=== PATIENT | female | born 1995 | race Caucasian/White ===

== ENCOUNTER 2016-04-25 00:36 | Emergency (ER) | payer BC, OTHER ==
[~2016-04-25] VITALS: Ht 160 cm; Wt 56.7 kg
[~2016-04-25 00:36] MED LIST: BSP15 PO; OXYC-57 PO
[2016-04-25 00:37] VITALS: Ht 160 cm; Wt 56.7 kg
[2016-04-25 01:00] VITALS: O2SAT 98
[2016-04-25] MEDS ORDERED: VENL150T33 PO (01:07)
[2016-04-25] MEDS ORDERED: ALBU18002 INH (01:08)
[2016-04-25] MEDS ORDERED: OXYC-57 PO (01:09)
[2016-04-25 01:13] LABS: BASO % 0.5 %; BASO ABS # 0.03 K/uL (0-0.2); COMPLETE YES; EOS % 2.4 %; HEMATOCRIT 36.9 % (37-47); IG% 0.2 %; LYMPH % 47.8 %; LYMPH ABS # 2.64 K/uL (1.2-3.4); MEAN CELL VOLUME 85.8 fL (80-100); MEAN CORPUSCULAR HEMOGLOBIN 29.8 pg (25-34); MEAN CORPUSCULAR HGB CONC 34.7 g/dl (32-36); MEAN PLATELET VOLUME 9.8 fL (7.4-10.4); MONO % 12.5 %; NEUT % 36.6 %; PLATELET COUNT 178 K/uL (130-400); WHITE BLOOD COUNT 5.52 K/uL (4.8-10.8)
[2016-04-25 01:31] LABS: ALT/SGPT 29 U/L (12-78); AST/SGOT 17 U/L (15-37); BLOOD UREA NITROGEN 4 mg/dl (7-18); BUN/CREATININE RATIO 5.3 (10-20); CARBON DIOXIDE 29 mmol/L (21-32); CHLORIDE 105 mmol/L (98-107); CREATININE 0.72 mg/dl (0.60-1.20); GLUCOSE 74 mg/dl (70-99); POTASSIUM 3.5 mmol/L (3.5-5.1); SODIUM 144 mmol/L (136-145)
[2016-04-25 01:34] LABS: ALKALINE PHOSPHATASE 56 U/L (45-117)
[2016-04-25 01:38] LABS: PREG INTERNAL NEGATIVE QC NEG CLEAR BACKGROUND; PREG INTERNAL POSITIVE QC POS CONTROL LINE
[2016-04-25] MEDS ORDERED: ACETAMINOPHEN 500 MG TAB PO STA (01:55)
[2016-04-25] MEDS ORDERED: BENZONATATE 100MG CAP PO ONE (02:00)
[2016-04-25] MEDS ORDERED: BENZ100C18 PO (02:05)
[2016-04-25 02:27] VITALS: BP 97/64; PULSE 78; TEMP 36.4; O2SAT 98
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
--- NOTE | 2016-04-25 07:07 | DIAGNOSTIC IMAGING REPORT ---
CHEST ONE VIEW PORTABLE CLINICAL HISTORY: Chest pain. Cough. COMPARISON STUDY: Chest radiograph October 21, 2015 per FINDINGS: Lung volumes are mildly diminished. There are cholecystectomy clips. There is no pneumothorax or pleural effusion. Cardiac size is normal. Mediastinal contours are normal. There is no evidence of pulmonary edema. IMPRESSION: No acute cardiopulmonary findings. Electronically signed by: Vincenzo Durant M.D. 04/25/2016 7:05 AM Dictated Date/Time: 04/25/2016 7:05 AM
[2016-08-16] MEDS ORDERED: PRED10TA PO (01:30)
== END 2016-04-25 02:31 | disposition home or self-care (01) ==
LOC: C.EDB 00:37
DX: R07.2 Precordial pain (principal)

== ENCOUNTER 2016-08-22 00:09 | Emergency (ER) | payer BC ==
[~2016-08-22] VITALS: Ht 160 cm; Wt 55.7 kg
[~2016-08-22 00:09] MED LIST changes: +ALBU18002 INH; +PRED10TA PO; +VENL150T33 PO
[2016-08-22 00:15] VITALS: Ht 160 cm; Wt 55.7 kg
[2016-08-22] MEDS ORDERED: SODIUM CHLORIDE 0.9% 1000ML 1,000 ML IV ONE (00:30)
[2016-08-22 00:45] LABS: HEMATOCRIT 38.2 % (37-47); MEAN CELL VOLUME 85.3 fL (80-100); MEAN CORPUSCULAR HEMOGLOBIN 29.9 pg (25-34); MEAN CORPUSCULAR HGB CONC 35.1 g/dl (32-36); PLATELET COUNT 249 K/uL (130-400); RED BLOOD COUNT 4.48 M/uL (4.2-5.4); WHITE BLOOD COUNT 8.82 K/uL (4.8-10.8)
[2016-08-22 00:55] LABS: URINE APPEARANCE CLEAR (CLEAR); URINE BILIRUBIN NEG (NEG); URINE COLOR YELLOW; URINE NITRITE NEG (NEG); URINE SPECIFIC GRAVITY 1.012 (1.000-1.030); UROBILINOGEN NEG (NEG); ZZUR CULT IF INDIC CLEAN CATCH NO
[2016-08-22 01:15] LABS: BASO % 0.5 %; BASO ABS # 0.04 K/uL (0-0.2); COMPLETE YES; EOS % 0.7 %; IG% 0.2 %; LYMPH % 58.5 %; LYMPH ABS # 5.16 K/uL (1.2-3.4); MONO % 5.4 %; NEUT % 34.7 %
[2016-08-22 01:25] LABS: BUN/CREATININE RATIO 13.4 (10-20); CALCIUM 8.7 mg/dl (8.5-10.1); CREATININE 0.78 mg/dl (0.60-1.20); POTASSIUM 3.5 mmol/L (3.5-5.1)
[2016-08-22 01:28] LABS: ALB/GLOB RATIO 0.9 (0.9-2)
[2016-08-22] MEDS ORDERED: ONDA-63 PO (01:30)
[2016-08-22] MEDS ORDERED: RIZA1TAB10 PO (01:30)
[2016-08-22] MEDS ORDERED: NORE1TAB3 PO (01:30)
[2016-08-22 01:36] LABS: MANUAL MICROSCOPIC REQUIRED? NO; REVIEW REQ? NO
[2016-08-22 01:52] VITALS: BP 115/67; PULSE 56; TEMP 36.7; O2SAT 99
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
== END 2016-08-22 01:52 | disposition home or self-care (01) ==
LOC: C.EDB 00:10
DX: R10.11 Right upper quadrant pain (principal); F41.9 Anxiety disorder, unspecified; F32.9 Major depressive disorder, single episode, unspecified; K21.9 Gastro-esophageal reflux disease without esophagitis; B00.9 Herpesviral infection, unspecified; Z79.3 Long term (current) use of hormonal contraceptives; Z83.3 Family history of diabetes mellitus; Z82.49 Family history of ischemic heart disease and other diseases of the circulatory system

== ENCOUNTER 2017-05-28 14:57 | Outpatient (CLI) | payer OTHER ==
--- NOTE | 2017-05-28 16:04 | Progress Note ---
Progress Note Date of Service May 28, 2017. Progress Note 22 F P0000 at 15.6 weeks with pelvic pain and discomfort since yesterday. No recent intercouse or trauma. No active vaginal bleeding. Eating OK and voiding without pain or frequency. Urine dipped negative and vitals. Exam shows no guarding or rebound, soft and non-tender. no edema. UA dipped negative. Positive FHT. Will discharge home and follow up next week in office.
== END 2017-05-28 16:10 | disposition home or self-care (01) ==
LOC: C.OPB 14:57 → C.LD 14:58 → C.OPB 16:10
PROVIDERS: ATTEND Obstetrics & Gynecology
DX: O26.891 Other specified pregnancy related conditions, first trimester (principal); R10.2 Pelvic and perineal pain; Z3A.15 15 weeks gestation of pregnancy

== ENCOUNTER 2017-07-20 22:47 | Emergency (ER) | payer OTHER ==
[~2017-07-20] VITALS: Ht 160 cm; Wt 55.0 kg
[2017-07-20 22:49] VITALS: TEMP 36.6; Ht 160 cm; Wt 55.0 kg
[2017-07-20] MEDS ORDERED: SODIUM CHLORIDE 0.9% 1000ML 1,000 ML IV STA (23:19)
[2017-07-20] MEDS ORDERED: ALUMINUM/MAGNESIUM SUSP 30 ML UDC PO STA (23:22)
[2017-07-20 23:29] LABS: BASO % 0.2 %; BASO ABS # 0.02 K/uL (0-0.2); EOS % 0.8 %; EOS ABS # 0.08 K/uL (0-0.5); HEMATOCRIT 36.1 % (37-47); HEMOGLOBIN 12.5 g/dL (12.0-16.0); IG# 0.02 K/uL (0.00-0.02); LYMPH % 30.6 %; LYMPH ABS # 3.01 K/uL (1.2-3.4); MEAN CELL VOLUME 86.8 fL (80-100); MEAN CORPUSCULAR HGB CONC 34.6 g/dl (32-36); MEAN PLATELET VOLUME 10.1 fL (7.4-10.4); MONO % 6.4 %; MONO ABS # 0.63 K/uL (0.11-0.59); NEUT % 61.8 %; NEUT ABS # 6.07 K/uL (1.4-6.5); PLATELET COUNT 215 K/uL (130-400); RED CELL DISTRIBUTION WIDTH CV 12.6 % (11.5-14.5); WHITE BLOOD COUNT 9.83 K/uL (4.8-10.8)
[2017-07-20] MEDS ORDERED: PRENTAB26 PO (23:34)
[2017-07-20] MEDS ORDERED: JNL12021 PO (23:36)
[2017-07-20 23:48] LABS: ALBUMIN 3.2 gm/dl (3.4-5.0); ALT/SGPT 20 U/L (12-78); AST/SGOT 13 U/L (15-37); BLOOD UREA NITROGEN 6 mg/dl (7-18); CALCIUM 8.6 mg/dl (8.5-10.1); CARBON DIOXIDE 27 mmol/L (21-32); CREATININE 0.59 mg/dl (0.60-1.20); GLUCOSE 83 mg/dl (70-99); LIPASE 190 U/L (73-393); POTASSIUM 3.4 mmol/L (3.5-5.1); SODIUM 137 mmol/L (136-145)
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
[2017-07-20 23:53] LABS: ALKALINE PHOSPHATASE 51 U/L (45-117); TOTAL PROTEIN 7.2 gm/dl (6.4-8.2)
[2017-07-21] MEDS ORDERED: ONDANSETRON INJ 2 MG/ML 2 ML VIAL IV STA (01:04)
[2017-07-21] MEDS ORDERED: ACETAMINOPHEN 325 MG TAB PO STA (01:04)
[2017-07-21] MEDS ORDERED: FAMOTIDINE 20MG/5ML IV PUSH IV STA (01:05)
[2017-07-21] MEDS ORDERED: DOXY30TA PO (02:25)
[2017-07-21 02:53] VITALS: BP 102/52; PULSE 72; O2SAT 100
--- NOTE | 2017-07-21 07:13 | DIAGNOSTIC IMAGING REPORT ---
ABDOMINAL ULTRASOUND, RIGHT UPPER QUADRANT HISTORY: hx liver disease, right upper quadrant abdominal pain. COMPARISON: None. FINDINGS: Pancreas: The pancreatic tail is obscured by overlying bowel gas. The remaining portions of the pancreas are within normal limits. Liver: Unremarkable. Gallbladder: The gallbladder is surgically absent. CBD: 2 mm. Right kidney: Mild fullness within the right renal collecting system. This is similar to the prior study. IMPRESSION: 1. Cholecystectomy. 2. Mild fullness within the right renal collecting system, unchanged. Electronically signed by: Bismark Brown M.D. 07/21/2017 7:11 AM Dictated Date/Time: 07/21/2017 7:10 AM
== END 2017-07-21 03:02 | disposition home or self-care (01) ==
LOC: C.EDB 22:48
DX: O26.892 Other specified pregnancy related conditions, second trimester (principal); R10.13 Epigastric pain; R07.9 Chest pain, unspecified; Z3A.24 24 weeks gestation of pregnancy; O99.612 Diseases of the digestive system complicating pregnancy, second trimester; K21.9 Gastro-esophageal reflux disease without esophagitis; Z79.899 Other long term (current) drug therapy; Z88.5 Allergy status to narcotic agent; Z91.041 Radiographic dye allergy status; Z88.2 Allergy status to sulfonamides; Z88.0 Allergy status to penicillin; Z88.8 Allergy status to other drugs, medicaments and biological substances

== ENCOUNTER 2017-07-24 16:56 | Emergency (ER) | payer OTHER ==
[~2017-07-24] VITALS: Ht 160 cm; Wt 55.1 kg
[~2017-07-24 16:56] MED LIST changes: -ALBU18002 INH; -BSP15 PO; +DOXY30TA PO; +JNL12021 PO; -OXYC-57 PO; -PRED10TA PO; +PRENTAB26 PO; -VENL150T33 PO
[2017-07-24 17:03] VITALS: TEMP 36.8; Ht 160 cm; Wt 55.1 kg
[2017-07-24] MEDS ORDERED: SODIUM CHLORIDE 0.9% 1000ML 1,000 ML IV STA (17:17)
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
[2017-07-24 18:19] LABS: BASO % 0.2 %; BASO ABS # 0.01 K/uL (0-0.2); EOS % 0.9 %; EOS ABS # 0.05 K/uL (0-0.5); HEMATOCRIT 33.9 % (37-47); IG# 0.01 K/uL (0.00-0.02); LYMPH % 33.1 %; MEAN CELL VOLUME 85.8 fL (80-100); MEAN CORPUSCULAR HEMOGLOBIN 30.4 pg (25-34); MEAN CORPUSCULAR HGB CONC 35.4 g/dl (32-36); NEUT % 54.6 %; NEUT ABS # 2.97 K/uL (1.4-6.5); PLATELET COUNT 181 K/uL (130-400); RED CELL DISTRIBUTION WIDTH CV 12.5 % (11.5-14.5); RED CELL DISTRIBUTION WIDTH SD 39.4 fL (36.4-46.3); WHITE BLOOD COUNT 5.44 K/uL (4.8-10.8)
[2017-07-24] MEDS ORDERED: CHOLESTYRAMINE LIGHT 4 GM PKT PO STA (18:20)
[2017-07-24 18:46] LABS: ALBUMIN 2.7 gm/dl (3.4-5.0); ALT/SGPT 35 U/L (12-78); AST/SGOT 29 U/L (15-37); BLOOD UREA NITROGEN 5 mg/dl (7-18); CALCIUM 8.2 mg/dl (8.5-10.1); CARBON DIOXIDE 24 mmol/L (21-32); GLUCOSE 84 mg/dl (70-99); LIPASE 101 U/L (73-393); POTASSIUM 3.3 mmol/L (3.5-5.1); SODIUM 136 mmol/L (136-145)
[2017-07-24 18:49] LABS: ALKALINE PHOSPHATASE 55 U/L (45-117); TOTAL PROTEIN 6.7 gm/dl (6.4-8.2)
[2017-07-24] MEDS ORDERED: POTASSIUM CHLORIDE 20 MEQ TABCR PO STA (18:57)
[2017-07-24] MEDS ORDERED: POTASSIUM CHLORIDE 10 MEQ TABCR ONE (19:03)
[2017-07-24 20:33] VITALS: BP 110/69; PULSE 90; O2SAT 100
== END 2017-07-24 20:35 | disposition home or self-care (01) ==
LOC: C.EDB 16:57
DX: O99.619 Diseases of the digestive system complicating pregnancy, unspecified trimester (principal); Z3A.00 Weeks of gestation of pregnancy not specified; R19.7 Diarrhea, unspecified; E87.6 Hypokalemia; K21.9 Gastro-esophageal reflux disease without esophagitis; Z88.0 Allergy status to penicillin; Z88.1 Allergy status to other antibiotic agents; Z88.6 Allergy status to analgesic agent; Z88.8 Allergy status to other drugs, medicaments and biological substances; Z91.041 Radiographic dye allergy status

== ENCOUNTER 2017-11-03 17:18 | Outpatient (CLI) | payer OTHER ==
[~2017-11-03] VITALS: Ht 160 cm; Wt 61.7 kg
[~2017-11-03 17:18] MED LIST changes: -DOXY30TA PO; -JNL12021 PO
[2017-11-03] MEDS ORDERED: LACTATED RINGER'S 1000ML 1,000 ML IV SCH (18:21)
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
[2017-11-03 19:01] LABS: BASO % 0.3 %; BASO ABS # 0.02 K/uL (0-0.2); EOS % 0.8 %; EOS ABS # 0.05 K/uL (0-0.5); HEMATOCRIT 29.4 % (37-47); HEMOGLOBIN 9.6 g/dL (12.0-16.0); IG# 0.03 K/uL (0.00-0.02); LYMPH % 30.9 %; LYMPH ABS # 1.96 K/uL (1.2-3.4); MEAN CELL VOLUME 83.3 fL (80-100); MEAN CORPUSCULAR HEMOGLOBIN 27.2 pg (25-34); MEAN PLATELET VOLUME 10.5 fL (7.4-10.4); MONO % 7.1 %; MONO ABS # 0.45 K/uL (0.11-0.59); NEUT % 60.4 %; NEUT ABS # 3.83 K/uL (1.4-6.5); PLATELET COUNT 171 K/uL (130-400); RED CELL DISTRIBUTION WIDTH CV 12.4 % (11.5-14.5); RED CELL DISTRIBUTION WIDTH SD 37.8 fL (36.4-46.3); WHITE BLOOD COUNT 6.34 K/uL (4.8-10.8)
[2017-11-03 19:25] LABS: ALBUMIN 2.2 gm/dl (3.4-5.0); ALKALINE PHOSPHATASE 157 U/L (45-117); ALT/SGPT 12 U/L (12-78); AST/SGOT 14 U/L (15-37); TOTAL PROTEIN 6.3 gm/dl (6.4-8.2); URIC ACID 4.1 mg/dl (2.6-7.2)
[2017-11-03 19:48] LABS: MEAN CORPUSCULAR HGB CONC 32.7 g/dl (32-36)
[2017-11-03 19:57] VITALS: Ht 160 cm; Wt 61.7 kg
== END 2017-11-03 21:09 | disposition home or self-care (01) ==
LOC: C.LD 17:18 → C.OPB 17:18
PROVIDERS: ATTEND Obstetrics & Gynecology
DX: O99.89 Other specified diseases and conditions complicating pregnancy, childbirth and the puerperium (principal); R51 Headache; R11.0 Nausea; Z3A.00 Weeks of gestation of pregnancy not specified; Z88.0 Allergy status to penicillin; Z88.2 Allergy status to sulfonamides; Z88.5 Allergy status to narcotic agent; Z91.041 Radiographic dye allergy status

== ENCOUNTER 2017-11-09 15:09 | Inpatient (IN) | payer OTHER ==
[~2017-11-09] VITALS: Ht 160 cm; Wt 62.0 kg
[2017-11-09] MEDS ORDERED: LACTATED RINGER'S 1000ML 500 ML IV PRN ×2 (15:35→20:36)
[2017-11-09] MEDS ORDERED: LACTATED RINGER'S 1000ML 1,000 ML IV SCH (15:36)
[2017-11-09] MEDS ORDERED: LACTATED RINGER'S 1000ML 1,000 ML IV PRN (15:36)
[2017-11-09] MEDS ORDERED: OXYTOCIN 30 UNITS/500ML NSS IV PRN (15:45)
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
[2017-11-09 16:10] LABS: HEMATOCRIT 28.6 % (37-47); HEMOGLOBIN 9.5 g/dL (12.0-16.0); MEAN CELL VOLUME 82.7 fL (80-100); MEAN CORPUSCULAR HEMOGLOBIN 27.5 pg (25-34); MEAN CORPUSCULAR HGB CONC 33.2 g/dl (32-36); MEAN PLATELET VOLUME 10.4 fL (7.4-10.4); PLATELET COUNT 196 K/uL (130-400); RED CELL DISTRIBUTION WIDTH CV 12.5 % (11.5-14.5); RED CELL DISTRIBUTION WIDTH SD 37.7 fL (36.4-46.3); WHITE BLOOD COUNT 6.52 K/uL (4.8-10.8)
[2017-11-09 16:38] LABS: ALBUMIN 2.5 gm/dl (3.4-5.0); ALKALINE PHOSPHATASE 167 U/L (45-117); ALT/SGPT 13 U/L (12-78); AST/SGOT 18 U/L (15-37); BLOOD UREA NITROGEN 5 mg/dl (7-18); CALCIUM 8.6 mg/dl (8.5-10.1); CARBON DIOXIDE 23 mmol/L (21-32); CREATININE 0.68 mg/dl (0.60-1.20); GLUCOSE 97 mg/dl (70-99); POTASSIUM 3.5 mmol/L (3.5-5.1); SODIUM 137 mmol/L (136-145); TOTAL PROTEIN 6.5 gm/dl (6.4-8.2)
[2017-11-09 17:20] VITALS: Ht 160 cm; Wt 62.0 kg
[2017-11-09] MEDS ORDERED: BUPIVACAINE 0.25% 30 ML VIAL ONE (18:53)
[2017-11-09] MEDS ORDERED: EpHEDrine SULFATE INJ 50 MG/ML AMP ONE (18:54)
[2017-11-09] MEDS ORDERED: FENTANYL CITRATE INJ 50 MCG/1 ML 2 ML VIAL ONE (18:54)
[2017-11-09] MEDS ORDERED: FENTANYL 2MCG/ML ROPIV 1.25MG/ML 100ML BAG ONE (18:55)
[2017-11-09] MEDS ORDERED: DiphenhydrAMINE HCL 50 MG/ML VIAL ONE (19:29)
[2017-11-09] MEDS ORDERED: DiphenhydrAMINE HCL 50 MG/ML VIAL IV STA (20:11)
[2017-11-09] MEDS ORDERED: NALOXONE HCL INJ 1 MG in SODIUM CHLORIDE 0.9% 1000ML 1,000 ML IV PRN (20:36)
[2017-11-09] MEDS ORDERED: EpHEDrine SULFATE INJ 50 MG/ML AMP IV PRN (20:45)
[2017-11-09] MEDS ORDERED: FENTANYL 2MCG/ML ROPIV 1.25MG/ML 100ML BAG EPI PRN (20:45)
[2017-11-09] MEDS ORDERED: NALOXONE HCL INJ 0.4 MG/1 ML VIAL/CARP IV PRN (20:45)
[2017-11-09] MEDS ORDERED: ONDANSETRON INJ 2 MG/ML 2 ML VIAL IV PRN (20:45)
[2017-11-09] MEDS ORDERED: DiphenhydrAMINE HCL 50 MG/ML VIAL IV PRN (20:45)
[2017-11-10] MEDS ORDERED: LACTATED RINGER'S 1000ML 1,000 ML IV SCH (00:35)
[2017-11-10] MEDS ORDERED: SUPERCREAM 0.870 % 15GM JAR EXT PRN (00:45)
[2017-11-10] MEDS ORDERED: DIPHTHERIA/TETANUS/PERTUSSIS 0.5 ML SYR/VIAL IM. ONE (00:45)
[2017-11-10] MEDS ORDERED: OXYTOCIN 30 UNITS/500ML NSS IV PRN (00:45)
[2017-11-10] MEDS ORDERED: LANOLIN OINT EXT PRN (00:45)
[2017-11-10] MEDS ORDERED: HYDROCORTISONE ACETATE 25 MG SUPP PR PRN (00:45)
[2017-11-10] MEDS ORDERED: OXYCODONE/ACETAMINOPHEN 5-325 TAB PO PRN (00:45)
[2017-11-10] MEDS ORDERED: BENZOCAINE 20% AER SPR 82.5 GM CAN EXT PRN (00:45)
[2017-11-10] MEDS ORDERED: MEASLES, MUMPS & RUBELLA VIRUS VIAL SQ. ONE (00:45)
--- NOTE | 2017-11-10 01:13 | DELIVERY SUMMARY ---
DATE OF OPERATION: 11/10/2017 DATE OF DELIVERY: 11/10/2017 TIME OF DELIVERY OF BABY: 0008 a.m. TIME OF DELIVERY OF PLACENTA: 0024 a.m. DETAILS OF DELIVERY: Patient was found to be fully dilated and desired to push. She pushed for about 20 minutes and then right mediolateral episiotomy was opened as planned due to her medical history and then the head was delivered without difficulty. There was nuchal cord around the neck x2. They were reduced. Shoulders were delivered with minimal traction. Baby was handed off to the mother where mouth and nose were suctioned. Cord was clamped x2 and cut at 1 minute delay and cord blood was obtained. The vagina and perineum were checked for lacerations. There was only small right mediolateral episiotomy, which was opened earlier. No other lacerations were found and this was repaired with 2-0 Vicryl in a running fashion bringing the vaginal mucosa together, bulbocavernous muscle together and skin in a subcuticular fashion. Excellent hemostasis was achieved. The placenta was found to be in the vagina, delivered spontaneously as intact and complete. Uterus was explored and found to be empty. Lower segment was cleared off all clots and debris. Fundus was firm. EBL was 200 mL. Mom and baby tolerated the procedure well. Sponge, lap, and needle counts were correct x2. Baby was a viable female . Apgars 8/9, weight is 3458 gr. No complications happened and I was present during whole procedure. I attest to the content of the Intraoperative Record and any orders documented therein. Any exceptions are noted below. MTDD
--- NOTE | 2017-11-10 01:41 | Anesthesia Procedure Note ---
Anesthesia Epidural Removal Nt Date & Time Nov 10, 2017 at 01:41 Vital Signs Pain Intensity: 2.0 Notes Mental Status: alert / awake / arousable, participated in evaluation Nausea / Vomiting: adequately controlled Pain: adequately controlled Airway Patency, RR, SpO2: stable & adequate BP & HR: stable & adequate Hydration State: stable & adequate Neuraxial Anesthesia: was administered, sensory block is resolving Anesthetic Complications: no major complications apparent, pt satisfied with anesthetic care Epidural: removed without complications, with tip intact
[2017-11-10] MEDS: IBUPROFEN 600 MG TAB PO PRN ×5 (03:10→23:38)
[2017-11-10 03:35] VITALS: BP 139/91; PULSE 69; TEMP 36.7; O2SAT 98
[2017-11-10] MEDS: PRENATAL VITAMIN TAB PO SCH (07:33)
[2017-11-10] MEDS: FERROUS SULFATE 325 MG TAB PO SCH (07:33)
[2017-11-10] MEDS: DOCUSATE SODIUM 100 MG CAP PO SCH ×2 (07:33→19:53)
[2017-11-10 08:00] VITALS: BP 138/87; PULSE 57; TEMP 36.9; O2SAT 98
[2017-11-10] MEDS: ACETAMINOPHEN 325 MG TAB PO PRN ×2 (09:47→19:14)
[2017-11-10 11:10] VITALS: BP 121/83; PULSE 65; TEMP 36.6
[2017-11-10 15:15] VITALS: BP 124/85; PULSE 64; TEMP 36.4; O2SAT 98
[2017-11-10 19:00] VITALS: BP_SYST 139; BP_SYST 87; BP_DIAS 50; BP_DIAS 94; PULSE 67; PULSE 68; TEMP 36.6; TEMP 36.9; O2SAT 97
[2017-11-10 23:30] VITALS: BP 133/87; PULSE 56; TEMP 36.4; O2SAT 100
[2017-11-11 07:09] LABS: HEMATOCRIT 26.6 % (37-47); HEMOGLOBIN 8.7 g/dL (12.0-16.0)
[2017-11-11 07:50] VITALS: BP 135/88; PULSE 52; TEMP 36.7; O2SAT 99
--- NOTE | 2017-11-11 08:33 | OB/GYN Progress Note ---
BUSINESS ACCOUNT SPECIALIST Progress Note Date of Service: Nov 11, 2017. Patient is seen and examined. She feels well, no complaints. Likes to be discharged if baby will be Ambulating without dizziness Voiding without difficulty Tolerating regular diet with out N&V Bleeding is minimal No fever/ chills/ CP/ SOB/ N&V/ Leg pain Bottle feeding without problems Discussed contraception, likes to decide at 6 weeks pp visit Date Time Temp Pulse Resp B/P (MAP) Pulse Ox O2 Delivery O2 Flow Rate FiO2 11/10/17 23:30 36.4 56 18 133/87 (102) 100 Room Air 11/10/17 23:30 Room Air 11/10/17 19:00 36.9 68 20 139/94 (109) 97 Room Air 11/10/17 15:15 36.4 64 20 124/85 (98) 98 Room Air 11/10/17 15:15 98 Room Air 11/10/17 11:10 36.6 65 16 121/83 (96) Room Air Last 24 Hours Test 11/11/17 06:40 Hemoglobin 8.7 g/dL Hematocrit 26.6 % PE: General: Alert, orientedx3, NAD Abd: soft, NT, fundus firm, below Umbilicus Perineum intact, Lochia rubra minimal Ext; NT, no edema AP: 22 yo s/p , ppd# 1, on 11/10 at 0008 am VSS Afebrile doing well Continue routine care All questions were answered Discussed when to call D/C home with baby
[2017-11-11] MEDS ORDERED: MTR600X PO (08:34)
[2017-11-11] MEDS ORDERED: FRRS300 PO (08:34)
--- NOTE | 2017-11-11 08:35 | Discharge Instructions ---
Discharge Instructions Date of Service Nov 11, 2017. Admission Reason for Admission: Prolonged Latent Phase Of Labor Discharge Discharge Diagnosis / Problem: Discharge Goals Goal(s): Routine recovery after delivery Medications Continue Dispensed Medications: dermaplast, lansinoh Activity Recommendations Activity Limitations: as noted below ACTIVITY RECOMMENDATIONS: * Gradual return to full activity over the next 2-3 weeks. * No lifting - nothing heavier than baby over the next 2-3 weeks. * Do not engage in vigorous exercise, sexual activity or sports until cleared by your physician. * Do not drive or operate any motorized equipment until cleared by your physician. * You may shower/bathe daily. BREAST CARE: If you are not breast feeding: * Wear a supportive bra 24 hours a day for one to two weeks. * Avoid stimulating your breasts and nipples as much as possible during the first few weeks after delivery. * When taking a shower, have the warm water hit your back, not breasts. * When your breasts feel full, apply ice packs. Usually three to four times a day helps ease the discomfort. * Take a mild pain medication (Tylenol/Motrin) when you are uncomfortable. If breast feeding: * Use breast milk to lubricate nipples. Lansinoh cream may be used for sore nipples. You do not need to remove cream prior to breast feeding. If using a different brand of cream, check the label for directions regarding removal of cream prior to nursing. * Wear a supportive bra. * If having problems with breasts or breast feeding, call a medical cost consultant or your health care provider. EPISIOTOMY CARE: After delivery, if you have an episiotomy (stitches), the following steps will ease discomfort and aid healing. * For the first 24 hours after delivery, place ice packs next to your episiotomy to help reduce swelling. * After the first 24 hour-period, sitz baths, either portable or in the tub, are suggested. A shower with a shower arm sprayed over the episiotomy may be comforting. * Liat care should be done after each voiding and bowel movement. Squirt warm water from a plastic bottle over the perineum (region of the body between the anus and urinary opening) and pat dry. * Use Dermoplast to ease discomfort. Shake container. Oran directly over the episiotomy. * Place a Tucks on a clean sanitary pad next to your episiotomy. OVER THE COUNTER MEDICATION: * For discomfort or pain, you may use Acetaminophen (Tylenol), Ibuprofen (Advil ), or Naproxen (Aleve) following the package directions. * For constipation you may use Colace following the package directions. SPECIAL CARE INSTRUCTIONS: When you are discharged from the hospital, it is important for you to follow the instructions listed below: * During the first week at home, you should be able to care for yourself and your baby. In addition, the usual light household activities are encouraged. * Limit your activities to the way you feel. Do not try to clean the house or move furniture. Be sensible. * If you actively engage in sports and have done so up until the time of your delivery, you may resume these activities as soon as you feel able. This may take up to one month or even longer. Use good judgment. * Continue to take your vitamins for at least six weeks after the of your baby. * Your diet need not be limited unless you were on a special diet before your delivery. Breast-feeding mothers need around 2500 calories per day and at least 64-80 ounces of fluid per day (8 to 10 glasses). * You should eat foods from the four major food groups. Crash diets or fad diets are to be avoided. Eating lean meats, fresh fruits and vegetables, low-fat dairy products, high fiber foods and a regular exercise program, will help you get back to your pre- weight without putting your health at risk. * Constipation is sometimes a problem after delivery. Take a mild laxative as needed. If breast feeding, Milk of Magnesia is acceptable to use. You may use a suppository or Fleets enema if no episiotomy. * A daily shower or tub bath is suggested. Be sure to thoroughly and gently dry the perineum. * A bloody vaginal discharge will usually continue until around four weeks post . A small amount of bleeding may continue for as long as six weeks. Vaginal discharge changes from the bright red bleeding after delivery to pink then brownish and finally yellowish-pink before becoming white and disappearing. * Bleeding may increase with activity. Your first period may come in 4-8 weeks. If you are breast feeding, your period may be delayed even longer. * Bowden (sex) can begin whenever both you and your partner feel comfortable and do not have any form of genital infection. It is recommended that you wait until after your return appointment and discuss with your physician. If you have questions, please talk to your health care practitioner. A condom should be used to prevent infection and . * Foreplay, gentle intercourse and lubrication is very important the first several times to prevent pain. A water-based lubricant such as K-Y jelly or Astroglide may be used. * Tampons may be used six weeks after delivery. * Douching should be avoided for 6 weeks after delivery. * If you have RH negative blood and your baby is RH positive, you will receive RHOGAM by injection prior to discharge. The nurse will give you a card to keep with you that has the date and place that you received RHOGAM after delivery. * During your care, you had a Rubella screen done to check for the presence of rubella antibodies in your blood. If your test was negative, you will receive a Rubella vaccine prior to discharge. This vaccine may cause a fever, soreness at the injection site and flu-like symptoms. If these symptoms persist, notify your health care practitioner. is not advised for three months after a Rubella vaccine. There is a higher chance of having a baby with defects if conceived within three months of getting the vaccine. * If you were discharged 24 hours from delivery or before 48 hours: Visiting nurses will come to your home 48 hours after discharge to assess you and your baby. The visiting nurse will meet with you while you are in the hospital to arrange a time and get directions to your home. * Verbalizes understanding of car seat law as reviewed with patient nursing. * Car Seat hand-out given and reviewed with patient by nursing. * Shaken baby information reviewed with patient by nursing. Call you doctor if: * Heavy bleeding (saturating several pads an hour) or passing clots the size of your fist. * A fever >101 degrees F (38.3 degrees C) on two occasions four hours apart and/or chills. * Unusual pain in the pelvic or vaginal areas. * "Baby Blues" lasting longer than two weeks. If you have any questions or concerns, call your health care practitioner at . FOLLOW-UP VISIT: * Please call the office at to schedule a 6 week examination. It is important you keep this appointment. * It is important for you to make arrangements for either yearly or twice yearly check-ups thereafter. . Current Hospital Diet Patient's current hospital diet: Regular OB Diet Discharge Diet Recommended Diet: Regular Diet Pending Studies Studies pending at discharge: no Medical Emergencies . Who to Call and When: Medical Emergencies: If at any time you feel your situation is an emergency, please call 911 immediately. . Non-Emergent Contact Non-Emergency issues call your: Gear Shaper Set Up Operator Call Non-Emergent contact if: you have a fever, temperature is above 100.5, your pain is not controlled, your pain is worsening, your pain is unusual for you . . "Provider Documentation" section prepared by Ever Lockwood. .
[2017-11-11] MEDS: FERROUS SULFATE 325 MG TAB PO SCH (08:49)
[2017-11-11] MEDS: PRENATAL VITAMIN TAB PO SCH (08:49)
[2017-11-11] MEDS: DOCUSATE SODIUM 100 MG CAP PO SCH ×2 (08:50→20:01)
[2017-11-11] MEDS: IBUPROFEN 600 MG TAB PO PRN ×2 (10:06→13:54)
[2017-11-11 15:35] VITALS: BP 132/88; PULSE 62; TEMP 36.7; O2SAT 98
[2017-11-11] MEDS: ACETAMINOPHEN 325 MG TAB PO PRN (18:36)
[2017-11-11 19:20] VITALS: BP 139/90; PULSE 67
[2017-11-11] MEDS ORDERED: BISACODYL 5 MG TABEC PO SCH (20:00)
[2017-11-11 23:55] VITALS: BP 130/87; PULSE 56; TEMP 36.7
[2017-11-12] MEDS: IBUPROFEN 600 MG TAB PO PRN ×2 (00:33→08:47)
--- NOTE | 2017-11-12 06:24 | OB/GYN Progress Note ---
FAMILY LIFE EDUCATOR Progress Note Date of Service: Nov 12, 2017. Patient is seen and examined. She feels well, no complaints. Ambulating without dizziness Voiding without difficulty Tolerating regular diet with out N&V Bleeding is minimal No fever/ chills/ CP/ SOB/ N&V/ Leg pain Bottle feeding without problems Vital Signs Past 12 Hours Date Time Temp Pulse Resp B/P (MAP) Pulse Ox O2 Delivery O2 Flow Rate FiO2 11/11/17 23:55 36.7 56 18 130/87 (101) Room Air 11/11/17 23:55 Room Air 11/11/17 19:20 67 139/90 (106) Last 24 Hours Test 11/11/17 06:40 11/12/17 04:44 Hemoglobin 8.7 g/dL Hematocrit 26.6 % PE: General: Alert, orientedx3, NAD Abd: soft, NT, fundus firm, below Umbilicus Perineum intact, Lochia rubra minimal Ext; NT, no edema AP: 22 yo s/p , ppd# 2 VSS Afebrile doing well Continue routine care All questions were answered Discussed when to call, iron, PNV intake D/C home , f/u in office
[2017-11-12] MEDS ORDERED: BISACODYL 10 MG SUPP PR PRN (07:00)
[2017-11-12 07:02] LABS: HEMATOCRIT 27.3 % (37-47); HEMOGLOBIN 8.8 g/dL (12.0-16.0); MEAN CELL VOLUME 82.7 fL (80-100); MEAN CORPUSCULAR HEMOGLOBIN 26.7 pg (25-34); MEAN CORPUSCULAR HGB CONC 32.2 g/dl (32-36); MEAN PLATELET VOLUME 9.9 fL (7.4-10.4); PLATELET COUNT 171 K/uL (130-400); RED CELL DISTRIBUTION WIDTH CV 12.7 % (11.5-14.5); RED CELL DISTRIBUTION WIDTH SD 38.1 fL (36.4-46.3); WHITE BLOOD COUNT 7.88 K/uL (4.8-10.8)
[2017-11-12 08:05] VITALS: BP 121/87; PULSE 53; TEMP 36.8; O2SAT 96
[2017-11-12] MEDS: FERROUS SULFATE 325 MG TAB PO SCH (08:45)
[2017-11-12] MEDS: PRENATAL VITAMIN TAB PO SCH (08:45)
[2017-11-12] MEDS: DOCUSATE SODIUM 100 MG CAP PO SCH (08:46)
[2017-11-12 11:45] VITALS: BP_DIAS 87; PULSE 53; TEMP 36.8
== END 2017-11-12 11:45 | disposition home or self-care (01) | DRG 775 ==
LOC: C.OPB 15:09 → C.LD 15:10 → C.OPB 15:38 → C.OBG 11-10 03:34
PROVIDERS: ADMIT Obstetrics & Gynecology; ATTEND Obstetrics & Gynecology
PROC: 10E0XZZ Delivery of Products of Conception, External Approach (ICD-10-PCS; principal; 2017-11-10)
PROC: 0W8NXZZ Division of Female Perineum, External Approach (ICD-10-PCS; principal; 2017-11-10)
DX: O63.0 Prolonged first stage (of labor) (principal); O69.81X0 Labor and delivery complicated by cord around neck, without compression, not applicable or unspecified; Z3A.39 39 weeks gestation of pregnancy; Z37.0 Single live birth

== ENCOUNTER 2024-08-06 10:32 | Inpatient (IN) ==
[2024-08-06] MEDS ORDERED: LIDOCAINE 1% LOCAL 20 ML VIAL INFIL PRN (11:45)
[2024-08-06] MEDS ORDERED: OXYTOCIN 30 UNITS/NSS 30 UNITS/500 ML BAG IV PRN ×2 (11:45→20:25)
--- NOTE | 2024-08-06 11:48 | Obstetrical Progress Note ---
Date of Service August 06, 2024 Assessment & Plan (1) : Admission and Anticipated Discharge Date Admission Date: August 06, 2024 Subjective Pt is a 29yo at term Hx of syncope that that is worsened in Pt is seen by cardiology and neurology and recommendation is delivery FHR; CAT1 Ctx None Bedside sono; VT VE; 1/thick/post Johnson cath placed without difficulty. 35cc saline Results & Data Vital Signs (Past 12 Hours) Vital Signs Temp Pulse Resp BP 08/06/24 10:40 36.9 C 96 H 20 125/80
[2024-08-06] MEDS: LACTATED RINGER'S 1,000 ML IV PRN (12:07)
[2024-08-06] MEDS: OXYTOCIN 30 UNITS/NSS 30 UNITS/500 ML BAG IV PRN (12:23)
[2024-08-06 12:33] LABS: Hematocrit (blood only) 33.2 % (37.0-47.0); Hemoglobin 11.7 g/dl (12.0-16.0); Mean Corpuscular Hemoglobin 30.6 pg (25.0-34.0); Mean Corpuscular Hgb Conc 35.2 g/dL (32.0-36.0); Mean Corpuscular Volume 86.9 fL (80.0-100.0); Mean Platelet Volume 10.9 fL (9.4-12.4); Platelet Count 142 K/uL (130-400); RDW Coefficient of Variation 12.8 % (11.5-14.5); RDW Standard Deviation 39.8 fL (36.4-46.3); Red Blood Count 3.82 M/uL (4.20-5.40); White Blood Count 6.48 K/ul (4.8-10.8)
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
[2024-08-06] MEDS ORDERED: SODIUM CHLORIDE 0.9% PF INJ 10 ML VIAL EPI PRN (14:49)
[2024-08-06] MEDS ORDERED: ePHEDrine sulfate 50 MG/ML AMP IV PRN (14:49)
[2024-08-06] MEDS ORDERED: LIDOCAINE 2% MPF LOCAL 5 ML VIAL EPI PRN (14:49)
[2024-08-06] MEDS ORDERED: NALOXONE HCL 1 MG in SODIUM CHLORIDE 0.9% 1,000 ML IV PRN (14:49)
[2024-08-06] MEDS ORDERED: ROPIVACAINE 0.5% PF 5 MG/ML 20 ML VIAL EPI PRN (14:49)
[2024-08-06] MEDS ORDERED: diphenhydrAMINE 50 MG/ML VIAL IV PRN (14:49)
[2024-08-06] MEDS ORDERED: BUPIVACAINE 0.25% PF 30 ML VIAL EPI PRN (14:49)
[2024-08-06] MEDS ORDERED: NALOXONE HCL 0.4 MG/1 ML VIAL/CARP IV PRN (14:49)
[2024-08-06] MEDS: fentaNYL citrate PF 100 MCG/2 ML VIAL ONE (15:04)
[2024-08-06] MEDS: ROPIVACAINE PF 0.125% 100 ML BAG EPI PRN (15:38)
[2024-08-06] MEDS: BUPIVACAINE 0.25% PF 30 ML VIAL ONE (15:42)
[2024-08-06] MEDS: SODIUM CHLORIDE 0.9% PF INJ 10 ML VIAL ONE (15:42)
[2024-08-06] MEDS: LIDOCAINE 2%/EPINEPHRINE 1:200,000 20 ML PF ONE (15:42)
--- NOTE | 2024-08-06 16:46 | Obstetrical Progress Note ---
Date of Service August 06, 2024 Assessment & Plan (1) : Plan: Pt doing well Epidural analgesia placed FHR; CAT1 CTx;1-3min VE; 4/50/-2 Pit; 8mui AROM with amnio hook- Mild meconium Anticipate VD Admission and Anticipated Discharge Date Admission Date: August 06, 2024 Results & Data Vital Signs (Past 12 Hours) Vital Signs Temp Pulse Resp BP Pulse Ox 08/06/24 16:36 69 99 08/06/24 16:31 70 98 08/06/24 16:27 81 124/78 08/06/24 16:26 67 99 08/06/24 16:21 69 99 08/06/24 16:16 68 99 08/06/24 16:12 67 123/78 08/06/24 16:11 68 99 08/06/24 16:06 73 99 08/06/24 16:01 77 99 08/06/24 15:57 71 125/77 08/06/24 15:56 75 99 08/06/24 15:51 73 99 08/06/24 15:46 75 98 08/06/24 15:43 36.9 C 18 08/06/24 15:42 81 120/77 08/06/24 15:41 74 98 08/06/24 15:40 78 124/78 08/06/24 15:38 74 129/80 08/06/24 15:36 78 130/75 97 08/06/24 15:34 84 135/81 08/06/24 15:32 82 126/74 08/06/24 15:31 84 98 08/06/24 15:30 86 124/84 08/06/24 15:28 91 H 124/82 08/06/24 15:26 81 132/84 97 08/06/24 15:24 80 124/77 08/06/24 15:22 80 130/80 08/06/24 15:21 77 99 08/06/24 15:20 69 134/85 08/06/24 15:16 78 100 08/06/24 15:11 72 99 08/06/24 14:49 73 20 126/84 08/06/24 13:38 36.8 C 20 08/06/24 13:37 72 119/75 08/06/24 13:23 81 122/82 08/06/24 13:07 80 119/83 05/06/25 12:53 75 20 118/72 08/06/24 12:36 80 140/71 08/06/24 11:48 83 118/75 08/06/24 10:40 36.9 C 96 H 20 125/80
--- OUTSIDE RECORDS SUMMARY | 2024-08-06 16:54 | External Medical Summary | Summary of Care ---
Author Name Unknown Organization [facility] Address [address] [place] [address] Phone [phone] Care Team Providers Care Staff Anesthesiologist Name Role Phone Jess Persaud MD Primary Care Provider [phone] Reason for Visit * Reason Onset Date Comments Hospital Follow-Up 07/24/2024 [facility] Encounter Details Date Type Department Care Team (Late st Contact Info) Description 07/24/2024 Telephone [facility] [address] [place] [address] Mamta Arreola, CAITLIN Hospital Follow-Up ([facility]) Allergies Active Allergy Reactions Criticality Noted Date Comments Sulfamethoxazole-Trimet hoprim Diarrhea,Hives 07/04/2016 Citalopram Hydrobromide Other (Please comment) 07/13/2011 Tongue swelling Clonidine 06/29/2016 Drop in BP and confusion Fentanyl Hives Medium 03/28/2018 Iodinated Contrast Media Hives Low 03/28/2018 Morphine Medium 03/28/2018 Other reaction(s): HIVES. PT DID TOLERATE DOSE ON 09/29/17 Other Allergy (See Comments) Itching,Rash 10/08/2023 Dermabond Penicillins Hives 04/07/1999 Ketorolac Tromethamine Hives 09/03/2014 Tolerates Ibuprofen Trazodone 10/01/2015 Bruise. Can not take it. Valacyclovir Hcl 09/03/2015 Hearing disturbance, itching Zolpidem 07/13/2011 Tongue swelling documented as of this encounter (statuses as of 07/24/2024) Medications One Daily 27-0.8 MG Oral Tablet Take 1 Tablet by mouth in the morning. Active Doxylamine Succinate (Sleep) 25 MG Oral Tablet (Unisom SleepTabs) Take 1 Tablet by mouth at bedtime as needed. Active Iron-Vitamin C 65-125 MG Oral Tablet (Vitron C)Indications:An tepartum anemia complicating Take 1 Tablet by mouth in the morning. 30 Tablet 5 5 Active Docusate Sodium 100 MG Oral Capsule (Colace)Indicati ons:Antepartum anemia complicating Take 1 capsule by mouth twice a day as needed. 60 Capsule 5 5 Active Additional Information Patient not taking.Reported on 07/15/2024 Breast PumpIndications: Breast feeding status of mother Use as directed. 1 Each 5 Active Additional Information Patient not taking.Reported on 07/15/2024 Acetaminophen 325 MG Oral Tablet (Tylenol) Take 2 Tablets by mouth every 6 hours as needed for Pain, Mild. 30 Tablet 1 5 Active Potassium Chloride ER 10 MEQ Oral Tablet Extended ReleaseIndicatio ns:Low serum potassium Take 1 Tablet by mouth daily. 30 Tablet 5 Active Sertraline HCl 50 MG Oral Tablet (Zoloft) Take 1 Tablet by mouth in the morning. Active Cefdinir 300 MG Oral Capsule (Omnicef) Take 1 Capsule by mouth in the morning and 1 Capsule before bedtime. Do all this for 10 days. 20 Capsule 5 07/26/19 25 Active Clotrimazole 1 % External Solution (Mycelex)Indicat ions:Otitis externa, fungal Apply topically to affected area 3 times a day for 21 days. Apply 3 drops to the left ear three times daily for 21 days 15 mL 2 5 08/10/19 25 Active documented as of this encounter (statuses as of 07/24/2024) Active Problems Problem Noted Date Diagnosed Date Fall 07/01/2024 Irregular uterine contractions 06/18/2024 Abdominal pain during , antepartum 07/2024 Abnormal glucose tolerance in mother complicatin g 05/14/2024 Antepartum anemia complicating 025 Supervision of high-risk , unspecified trimester 12/25/2023 Overview (12/25/2023): Indication: other PBC Pregravid BMI: Could not be calculated ASA: awaiting MFM recommendations due to PBC MFM consult: recommended at new OB Hepatology consult placed at New OB Growth US: awaiting MFM recommendations NST: awaiting MFM recommendations Delivery: plan pending Anesthesia consult: not needed at this time History of drug abuse 12/25/2023 Pelvic pain in female 08/21/2023 Dyspareunia in female 08/21/2023 Left ovarian cyst 08/21/2023 ADHD (attention deficit hype ractivity disorder), combined type 11/04/2022 Herpes labialis 07/05/2022 Primary biliary cholangitis with systemic sclero sis 09/07/2018 Overview (01/10/2024): Patient with diagnosis of primary sclerosing cholangitis Last GI visit in 2022 magin/21: MRCP mild focal short segment stricture involved the proximal eh duct Last colon in 2019: Normal Labs: Tbil <0.2mg/dl Alp: 43 u/l Normal remaining liver labs Assessment & Plan: Considerations We discussed the nature of her diagnosis.Primary sclerosing cholangitis is an idiopathic condition involving the biliary system with stricturing and subsequent hepatic damage. Advanced disease with hepatocellular damage can lead to cirrhosis and portal hypertension. There is limited data on in patients with PSC and such evidence that exist show no direct effect of the disease on or vice versa. In advanced disease fat soluble vitamin deficiencies may be a concern as well concern for biliary cirrhosis with risk of portal hypertension. Recommendations -We recommend a follow up with the gas fitter for updated guidance specific to and for completion of new liver labs -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 -We recommend liver function testing each trimester but will defer to the guidance of her gas fitter on frequency of testing -Recommend monitoring bile acids and liver function testing every trimester (or as per GI recommendation), as well baseline preeclampsia evaluation with CMP and 24 hour urine for total protein. -Recommend Maternal- Medicine ultrasound for assessment of anatomy at 20 weeks -Patient counseled on the symptoms of cholestasis to lookout for. If symptoms of itching occur, please contact your primary OB -Ursodiol for relief of itching is safe in . -Recommend annual thyroid function test (with TSH) and fat-soluble vitamin levels, and consider anti-nuclear antibody test, if not done already. Assessment & Plan (01/08/2024 1:45 PM EDT): Considerations We discussed the nature of her diagnosis.Primary sclerosing cholangitis is an idiopathic condition involving the biliary system with stricturing and subsequent hepatic damage. Advanced disease with hepatocellular damage can lead to cirrhosis and portal hypertension. There is limited data on in patients with PSC and such evidence that exist show no direct effect of the disease on or vice versa. In advanced disease fat soluble vitamin deficiencies may be a concern as well concern for biliary cirrhosis with risk of portal hypertension. Recommendations -We recommend a follow up with the gas fitter for updated guidance specific to and for completion of new liver labs -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 -We recommend liver function testing each trimester but will deer to the guidance of her gas fitter on frequency of testing -Recommend monitoring bile acids and liver function testing every trimester (or as per GI recommendation), as well baseline preeclampsia evaluation with CMP and 24 hour urine for total protein. -Recommend Maternal- Medicine ultrasound for assessment of anatomy at 20 weeks -Patient counseled on the symptoms of cholestasis to lookout for. If symptoms of itching occur, please contact your primary OB -Ursodiol for relief of itching is safe in . -Recommend annual thyroid function test (with TSH) and fat-soluble vitamin levels, and anti-nuclear antibody test, if not done already. If ALHAJI is positive, we recommend obtaining SS-A/SS-B antibodies. If SS-A/SS-B antibodies are positive, please refer back to Maternal- Medicine as soon as possible to monitor for heart block. Liver lesion 07/27/2017 History of Tony fundoplication 03/30/2017 PSC (primary sclerosing cholangitis) 06/16/2016 Overview (09/04/2017): PRIMARY SCLEROSING CHOLANGITIS (PSC) 1. We discussed that there is not much data on women with PSC. However, the limited data shows PSC does not negatively impact the course of the . 2. Consider screening for varices in the second trimester (would defer to GI regarding this recommendation). If varices are present, short second stage of labor is optimal to minimize risk of variceal hemorrhage. 3. Recommend patient continue to follow-up with her cold type composing machine operator/gas fitter. 4. Recommend annual thyroid function test (with TSH) and fat-soluble vitamin levels, and anti-nuclear antibody test, if not done already. If ALHAJI is positive, we recommend obtaining SS-A/SS-B antibodies. If SS-A/SS-B antibodies are positive, please refer back to Maternal- Medicine as soon as possible to monitor for heart block. 08/24/17-ALHAJI negative 5. Recommend monitoring bile acids and liver function testing every trimester (or as per GI recommendation), as well baseline preeclampsia evaluation with CMP and 24 hour urine for total protein. 08/24/17: bile acids 15 07/27/17: hep fxn panel normal 6. Discussed risk factors associated with cholestasis in , including signs and symptoms. Patient instructed to contact her primary OB provider immediately upon development of symptoms to facilitate additional testing and monitoring. 7. We reviewed that MRI may be performed in any trimester. 8. Recommend Maternal- Medicine ultrasound for assessment of anatomy at 20 weeks. Urine Protein/Creatinine Results uninterpretable, Urine Protein <4. Need to repeat. Assessment & Plan (03/25/2024 10:07 AM EST): I reviewed the ultrasound with her. The anatomy that was visualized appears unremarkable and the biometry is appropriate the gestational age. The amniotic fluid volume is subjectively normal. I reviewed her low risk noninvasive screen in light of the normal ultrasound findings. At this point, there is clinically no indication for return. IBS (irritable bowel syndrome) 05/12/2011 Overview (05/09/2017): RECOMMENDATIONS: 1. Metamucil, 1 tablespoon once or twice daily can be used to keep bowels regular if needed. 2. Recommend monitoring patient for changes in bowel movements and weight gain throughout the . 3. Refer to Gastroenterology for moderate or severe symptoms. Depression with anxiety Overview (01/10/2024): Assessment & Plan: CONSIDERATIONS: Untreated maternal anxiety and/or depression may be associated with an increased risk of multiple poor obstetrical outcomes including miscarriages, low weight, and delivery. Women with a history of anxiety or depression are at risk for recurrence both during and/or the period. Studies of first-trimester SSRI exposure do not demonstrate consistent data to support an increased risk for structural malformations. Anti-anxiety or depression medications have been associated with transient effects (withdrawal syndrome). RECOMMENDATIONS: Mental illness can and should be treated during when the benefits of treatment outweigh potential risks. Referral to behavioral health services as clinically indicated. Assessment & Plan (01/07/2024 7:33 PM EDT): CONSIDERATIONS: Untreated maternal anxiety and/or depression may be associated with an increased risk of multiple poor obstetrical outcomes including miscarriages, low weight, and delivery. Women with a history of anxiety or depression are at risk for recurrence both during and/or the period. Studies of first-trimester SSRI exposure do not demonstrate consistent data to support an increased risk for structural malformations. Anti-anxiety or depression medications have been associated with transient effects (withdrawal syndrome). RECOMMENDATIONS: Mental illness can and should be treated during when the benefits of treatment outweigh potential risks. Referral to behavioral health services as clinically indicated. Estimated Date of Delivery Comme nts Yes 08/11/2024 documented as of this encounter (statuses as of 07/24/2024) Resolved Problems Problem Noted Date Diagnosed Date Resolved Date premature rupture of membranes 06/12/2024 06/13/2024 9 weeks gestation of 01/08/2024 03/18/2024 Overview (01/08/2024): Wants Quad and AFP done Assessment & Plan (01/08/2024 1:30 PM EDT): -Continue with vitamins -Routine care PCB (post coital bleeding) 08/21/2023 0 12/25/2023 Major depressive disorder, r ecurrent episode, mild 06/12/2020 03/18/2024 Moderate episode of recurren t major depressive disorder 06/07/2019 03/18/2024 History of opioid abuse 06/07/201907/02 Recurrent major depressive d isorder, in partial remission 02/12/2018 03/18/2024 Abnormal bruising 01/26/2018 05/06/2022 Advance directive declined by patient 06/26/2017 05/06/2022 Overview (05/08/2017): Does the patient have an advance directive? No, Advance Directive brochure offered, patient declined. Anxiety during , antepartum 03/30/2017 11/10/2017 Overview (03/30/2017): Was on Wellbutrin briefly prior to +HPT, stopped med with positive test. Declines meds in first trimester. Need to discuss again in second tri Contraception management 07/11/201607/2022 Overview (07/26/2016): From Dr. Nicole: She has very stable liver disease/PSC. Generally OCP's are safe in stable liver disease. There is a small old study, relating OCP use with worsening cholestasis and increased risk of biliary tract malignancy. Further large studies did not show any relationship. If no alternate available, OK to use OCP's, as her disease is stable. Will monitor LFT's and serial imaging anyways. Opioid abuse, uncomplicated 07/04/2016 06/07/2019 Overview (07/04/2016): Hospitalized at [facility] June 2016. Abnormal findings on imaging of biliary tract 12/15/19 16 12/05/2017 Migraine with aura 08/22/2014 7 Abdominal pain 07/13/2011 09/22/2017 Depression 07/13/2011 08/24/2015 Periumbilical abdominal pain 02/08/2011 12/27/2016 Overview (01/02/2017): ICD-10 update of inactive term Sciatica 08/20/2010 12/27/2016 Disorder of lip 08/18/2009 02/08/2011 Overview (01/02/2017): ICD-10 update of inactive term Esophageal reflux 08/18/2009 12/27/2016 Constipation 08/18/2009 12/27/2016 Overview (01/02/2017): ICD-10 update of inactive term Unspecified disorder of mens truation and other abnormal bleeding from female genital tract 08/18/2009 02/08/2016 Intestinal infection due to Clostridium difficile 06/27/2009 02/08/2011 Gastrointestinal hemorrhage 06/25/2009 02/08/2011 Loss of weight 06/25/2009 12/27/2016 Malnutrition of moderate degree 06/25/2009 02/08/2011 Major depressive disorder 06/25/2009 Overview (01/24/2017): ICD-10 update of inactive term Gastroparesis 05/01/2009 09/22/2017 Reflux esophagitis 05/01/2009 1 Esophageal reflux 04/29/2009 05/01/2009 Gastroparesis 03/19/2009 05/01/2009 Cyst of thyroid 02/03/2009 11/04/2022 Overview (05/09/2017): THYROID CYST Recommend obtaining thyroid function test and treating for thyroid disorder if patient screening positive. Nausea 02/03/2009 12/27/2016 Overview (01/24/2017): ICD-10 update of inactive term Urticaria 07/30/2001 02/03/2009 Umbilical hernia 02/03/2009 Otitis media 02/03/2009 Primary biliary cholangitis with systemic sclerosis 07/13/2020 Overview (07/13/2020): Duplicate documented as of this encounter (statuses as of 07/24/2024) Immunizations Name Administration Dates Next Due COVID-19 mRNA, LNP-s, No Pre serve, 2-Dose Series ([employer]) 04/22/2020,04/02/2020 HPV Vaccine, 4-Valent 08/02/2007,04/10/2007,01/01 Hepatitis B, 0-19 yrs 1995,1995,03/03 Seasonal Influenza Virus Vac cine, Unspecified Formulation 05/29/2023 Seasonal Influenza, PF, 6 M & above, IM , (FluLaval or Fluzone) 12/29/2020,10/15/2017,02/08/2017 Seasonal Influenza, Quadriva lent, No Preserve, IM 12/19/2019,01/16/2019,01/08/2016 Seasonal Influenza, Trivalen t, (IIV3), PF, (Fluzone) 01/22/2024 TDAP (age 10 and older)(Boostrix) 08/24/2017,03/2015 TDAP, Age 7 and older, IM (Adacel) 05/13/2024, documented as of this encounter Social History Tobacco Use Types Packs/Day Years Used Date Smoking Tobacco: Never Smokeless Tobacco: Never Alcohol Use Standard Drinks/Week Comments Not Currently 0 (1 standard drink = 0.6 oz pur e alcohol) last drink 02/27/18 PHQ-2 Answer Date Recorded PHQ Adult Total Score 0 12/15/2023 Hunger Vital Sign Answer Date Recorded Within the past 12 months, y ou worried that your food would run out before you got the money to buy more. Never true 03/18/20 24 Within the past 12 months, t he food you bought just didn't last and you didn't have money to get more. Never true 03/18/2024 Winslow Depression Scale Answer Date Recorded Winslow Depression Scale Total 17 07/15/2024 The thought of harming myself has occurred to me . Never 07/15/2024 Childcare Answer Date Recorded Do you feel overwhelmed with taking care of a child, family member or friend? No 03/18/2024 Does your family need help f inding childcare? (Household - for ages 0-17 years) Not on file 03/18/2024 Clothing Answer Date Recorded Have you been unable to get clothing when it was really needed? No 03/18/2024 Is your family able to get c lothes or diapers when needed? (Household - for ages 0-17 years) Not on file 03/18/2024 Personal Safety Answer Date Recorded Do you feel unsafe or have concerns for your saf ety? No 06/12/2024 Do you have concerns for you r family's safety? (Household - for ages 0-17 years) Not on file 06/12/2024 Utilities Answer Date Recorded Do you have trouble paying y our heating, water, or electric bill? No 06/12/2024 Is your family able to pay t he heat, water, or electric bill? (Household - for ages 0-17 years) Not on file 06/12/2024 Does your family have access to good internet? (Household - for ages 0-17 years) Not on file 06/12/2024 Employment Status Answer Date Recorded Are you unemployed or without regular income? No 03/18/2024 Does the household have a re lar source of income? (Household - for ages 0-17 years) Not on file 03/18/2024 Social Connections Answer Date Recorded How often do you feel lonely or isolated from th ose around you? Never 03/18/2024 Financial Resource Strain Answer Date R ecorded Do you have any trouble payi ng for your medications, or do you think you might in the future? No 03/18/2024 Does your family have troubl e paying for medicine? (Household - for ages 0-17 years) Not on file 03/18/2024 Transportation Needs Answer Date Record ed Do you have trouble getting a ride to medical visits or work? (Adult - for ages 18 years and over) Not on file 06/12/2024 Does your family have a hard time getting a ride to doctors visits? (Household - for ages 0-17 years) Not on file 06/12/2024 Has lack of transportation k ept you from medical appointments, meetings, work, or from getting things needed for daily living? Check all that apply. No 06/12/2024 Do you (or your family) have trouble finding or paying for a ride (transportation)? (Household - for ages 0-17 years) Not on file 06/12/2024 Housing Stability Answer Date Recorded Do you currently live in a s helter or have no steady place to sleep at night? No 06/12/2024 Do you think you are at risk of becoming homeless? (Adult - for ages 18 years and over) Not on file 06/12/2024 Does your family worry about paying for your home or becoming homeless? (Household - for ages 0-17 years) Not on file 0 06/12/2024 Are you homeless or worried that you might be in the future? No 06/12/2024 Are you (or your family) steve eless or worried that you might be in the future? (Household - for ages 0-17 years) Not on file Food Insecurity Answer Date Recorded Do you need food for this week? No 03/18/2024 Are you able to get enough f ood for your family? (Household - for ages 0-17 years) Not on file 03/18/2024 Does your family need food t his week? (Household - for ages 0-17 years) Not on file 03/18/2024 Do you always have enough fo od for your family? (Household - for ages 0-17 years) Not on file 03/18/2024 Food Insecurity Answer Date Recorded Within the past 12 months, y ou worried that your food would run out before you got the money to buy more. Never true 06/13/19 25 Within the past 12 months, t he food you bought just didn't last and you didn't have money to get more. Never true 06/12/2024 Do you need food for this week? 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 Not on file Not on file documented as of this encounter Miscellaneous Notes * Telephone Encounter - Mamta Arreola RN - 07/24/2024 9:29 AM EDT Transitions of Care Note Reason for Referral:Recent Admission Phone visit for follow up: [facility] Admitted to: [facility], Date: 07/22/2024 Discharged to: Home, Date: 07/23/2024 Diagnosis driving hospitalization: Syncope, dizziness Source/Contact: Patient SUBJECTIVE Consent: Verbal consent for review of hospital discharge: Yes REVIEW OF SYSTEMS Patient/Other Reports: Current patient/caregiver problems or concerns: Patient reports she is doing fine. CV: Denies problems Pulmonary: Denies problems Chills/Sweats/Fever:Denies chills/sweats Denies fever Appetite:Denies problems such as nausea, vomiting, burning, decreased appetite Current diet: reg Bowel: denies problems Bladder: denies problems Wound (If applicable): N/A Pain:Denies Sleep:Denies problems FUNCTIONAL STATUS: ADL'S: Needs Assistance With:N/A as pt is independent IADL'S: Needs Assistance With:N/A as pt is independent Cognitive and Mental Health: denies problems, alert and oriented x 3, and able to communicate, understand instructions, process information. MEDICATION RECONCILIATION Medications: No new medications or medication changes ASSESSMENT Medication Risk Assessment: No risks identified Discharge instructions available for review? Yes PLAN Symptom Monitoring Interventions:Member/caregiver education - signs and symptoms to contact PrimaryCare (DO NOT DELETE-Three alva symptoms patient is to report to PCP) 1. Increased syncopal episodes 2. Decreased movements. 3. 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 Educated on role of CRISS completed with patient/caregiver. Educated patient/caregiver on patient right to have input on [facility] plan of care. Verification of Home Health/DME if indicated: No Identified Care Gaps: Yes Care Gaps closed this call: Transition of Care follow-up communication Re-evaluation of Plan of Care and progress towards goals achievement: Patient education this visit: Verbal, see above Plan to instructed to call Primary Care Provider with change in symptoms or as needed before next follow-up, discharge needs met, verbalizes understanding and agrees with plan. Mamta Arreola RN documented in this encounter Plan of Treatment Upcoming Encounters Date Type Department Care Team (Late st Contact Info) Description 07/26/2024 8:45 AM EDT Office Visit Gynecology/Obstetrics [facility] [address] [address] Dawn Blanchard CRNP [address] [address] 07/30/2024 12:00 PM EDT Office Visit [facility] [address] [place] [id number] Jess Persaud MD [address] [place] [id number] 07/31/2024 8:00 AM EDT Office Visit Gynecology/Obstetrics [facility] [address] [place] [address] Neeru Haynes CRNP [address] [place] [address] 08/07/2024 10:30 AM EDT Office Visit Gynecology/Obstetrics [facility] [address] [place] [address] Neeru Haynes CRNP [address] [place] [address] 08/12/2024 8:45 AM EDT Office Visit Gynecology/Obstetrics [facility] [address] [place] [address] Dawn Blanchard CRNP [address] [place] [address] 08/12/2024 10:30 AM EDT [facility] [address] [facility] [place] [address] Terra Rosales, DO [address] [place] [address] 12/16/2024 7:40 AM EDT Office Visit Family [facility] [address] [place] [address] Jess Persaud MD [address] [place] [address] Health Maintenance Due Date Last Done Comments Pneumococcal Vaccine: Pediatrics (0 to 5 Years) and At-Risk Patients (6 to 18 Years and 19+ Years) (1 of 2 - PCV) 2014 COVID-19 Vaccine (3 - season) 2023 04/22/2020, 04/02/2020 Depression Monitoring 12/14/2024 12/15/2023 Pap Smear 05/06/2025 05/06/2022, 12/03, 08/24/2015 DTap/Tdap Vaccines (10 - Td or Tdap) 05/13/2034 05/13/2024, 08/24/2017, 08/12/2014, Additional history exists HPV (Gardasil) Vaccine Completed 8, 04/10/2007, 01/11/2007 Lipid Panel Completed 05/22/2009 Influenza Vaccine (FLU shot) Completed 01/22/2024, 05/29/2023, 12/29/2020, Additional history exists Gonorrhea / Chlamydia Screen Discontinued 06/12/2024, 12/25/2023, 08/21/2023, Additional history exists MENINGOCOCCAL (MENACTRA/MENVEO) Aged Out No longer eligible based on patient's age to complete this topic Meningitis B Vaccine (Bexsero/Trumemba) Aged Out No longer eligible based on patient's age to complete this topic documented as of this encounter Goals Goal Patient Goal Type Associated Problems Recent Progress Patient-Stated? Author Reminders Care Plan OB Reminders No Yuryt, Provider documented as of this encounter Medical Devices Implanted Type Area Slot Technician Device Identifier Shelf Expiration Date Model / Serial / Lot Arciniega Vent Tube #[id number] - [id number] Implanted:Qty: 1 on 08/09/2023 by Terra Rosales DO [place] [facility] [place] Ear [employer] 12/25/2032 [id number] / / [id number] Arciniega Vent Tube #[id number] - [id number] Implanted:Qty: 1 on 08/09/2023 by Terra Rosales DO [place] [facility] [place]: Ear [employer] 12/25/2032 [id number] / / [id number] documented as of this encounter Additional Health Concerns Active Problems Noted Date Diagnosed Date OB Reminders 12/28/2023 documented as of this encounter Advance Directives * Full Code (Latest Code Status on File) Date Activated Date Inactivated Comments 06/12/2024 4:18 PM 06/13/2024 7:29 PM This order r eflects the patients wishes and were consensually agreed upon. Question Answer Comments Discussion of Advance Direct maury occurred with: Not Discussed due to patient's condition * Full Code Date Activated Date Inactivated Comments 09/27/2023 9:36 AM 09/27/2023 3:09 PM This order r eflects the patients wishes and were consensually agreed upon. Question Answer Comments Discussion of Advance Direct maury occurred with: Not Discussed due to patient's condition * Full Code Date Activated Date Inactivated Comments 06/24/2009 7:25 PM 07/03/2009 3:31 PM This order re flects the patients wishes and were consensually agreed upon. Question Answer Comments Discussion of Advance Directives occurred with: Patient/Family Does the patient have a Living Will? No Does the patient have Health Care Power of Attor casandra? No * Full Code Date Activated Date Inactivated Comments 04/30/2009 4:23 PM 05/29/2009 3:28 PM This order r eflects the patients wishes and were consensually agreed upon. Question Answer Comments Discussion of Advance Directives occurred with: Not Discussed Does the patient have a Living Will? No Does the patient have Health Care Power of Attor casandra? No Care Teams Staff Anesthesiologist Relationship Specialty Start Date End Date Jess Persaud MD [address] [place] [address] PCP - General Family Medicine 11/04/22 documented as of this encounter
--- OUTSIDE RECORDS SUMMARY | 2024-08-06 16:54 | External Medical Summary | Summary of Care ---
Author Name Unknown Organization [facility] Address [address] [place] [address] Phone [phone] Care Team Providers Care Lamp Cleaner Name Role Phone Jess Persaud MD Primary Care Provider [phone] Reason for Visit * Reason Onset Date Comments Emergency Department Follow-Up P T was in [facility] ER, initially went in for contractions and leakage. Hospital Follow-Up 08/01/2024 Encounter Details Date Type Department Care Team (Late st Contact Info) Description 08/01/2024 11:00 AM EDT Office Visit [facility] [address] [place] [id number] Jess Persaud MD [address] [place] [id number] Hospital discharge follow-up*; Moderate recurrent major depression (HCC); Syncope and collapse; Otitis externa, fungal; History of drug abuse (HCC) Allergies Active Allergy Reactions Criticality Noted Date [...] as of this encounter (statuses as of 08/01/2024) Medications One Daily 27-0.8 MG Oral Tablet Take 1 Tablet by mouth in the morning. Active Doxylamine Succinate (Sleep) 25 MG Oral Tablet (Unisom SleepTabs) Take 1 Tablet by mouth at bedtime as needed. Active Iron-Vitamin C 65-125 MG Oral Tablet (Vitron C)Indications:A ntepartum anemia complicating Take 1 Tablet by mouth in the morning. 30 Tablet 5 04/17/19 25 Active Breast PumpIndications :Breast feeding status of mother Use as directed. 1 Each 05/13/19 25 Active Additional Information Patient not taking.Reported on 07/31/2024 Acetaminophen 325 MG Oral Tablet (Tylenol) Take 2 Tablets by mouth every 6 hours as needed for Pain, Mild. 30 Tablet 1 06/14/19 25 Active Additional Information Patient not taking.Reported on 08/01/2024 Potassium Chloride ER 10 MEQ Oral Tablet Extended ReleaseIndicati ons:Low serum potassium Take 1 Tablet by mouth daily. 30 Tablet 07/02/19 25 Active Sertraline HCl 50 MG Oral Tablet (Zoloft) Take 1 Tablet by mouth in the morning. Active Clotrimazole 1 % External Solution (Mycelex)Indica tions:Otitis externa, fungal Apply topically to affected area 3 times a day. Apply 3 drops to the left ear three times daily for 21 days 15 mL 2 08/02/19 25 Active Docusate Sodium 100 MG Oral Capsule (Colace)Indicat ions:Antepartum anemia complicating Take 1 capsule by mouth twice a day as needed. 60 Capsule 5 04/17/19 25 2024 Discontinued Clotrimazole 1 % External Solution (Mycelex)Indica tions:Otitis externa, fungal Apply topically to affected area 3 times a day for 21 days. 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 -We recommend liver function testing each trimester but will deer to the guidance of her seismographer on frequency of testing -Recommend monitoring bile [...] Recommend patient continue to follow-up with her commercial real estate assistant/seismographer. 4. Recommend annual thyroid function test (with [...] as of this encounter (statuses as of 08/01/2024) Resolved Problems Problem Noted Date Diagnosed Date Resolved Date Irregular uterine contractions 06/18/2024 07/26/2024 premature rupture of membranes 06/12/2024 06/13/2024 9 [...] uncomplicated 07/04/2016 06/07/2019 Overview (07/04/2016): Hospitalized at [facility] June 2016. Abnormal findings on imaging [...] as of this encounter (statuses as of 08/01/2024) Immunizations Name Administration Dates Next Due COVID-19 mRNA, LNP-s, No Pre serve, 2-Dose Series (SafeTool) 04/22/2020,04/02/2020 HPV Vaccine, 4-Valent 08/02/2007,04/10/2007,01/01 Hepatitis B, [...] Date Smoking Tobacco: Never Smokeless Tobacco: Never Tobacco Cessation:Counseling Given: No Alcohol Use Standard Drinks/Week Comments Not Currently 0 (1 standard drink = 0.6 oz pur e alcohol) last drink 02/27/18 PHQ-2 Answer Date Recorded PHQ Adult Total Score 0 08/01/2024 Hunger Vital Sign Answer Date Recorded Within the past 12 months, y ou worried that your food would run out before you got the money to buy more. Never true 03/18/20 24 Within the past 12 months, t he food you bought just didn't last and you didn't have money to get more. 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[employer] Not on file Not on file Not on file documented as of this encounter Last Filed Vital Signs Vital Sign Reading Time Taken Comments Blood Pressure 103/74 08/01/2024 11:05 AM EDT Pulse 85 08/01/2024 11:05 AM EDT Temperature 36.7 °C (98 °F) 08/01/2024 11:05 AM EDT Respiratory Rate 16 08/01/2024 11:05 AM EDT Oxygen Saturation 97% 08/01/2024 11:05 AM EDT Inhaled Oxygen Concentration - - Weight 72.2 kg (159 lb 3.2 oz) 08/01/2024 11:05 AM EDT Height 160 cm (5' 2.99") 08/01/2024 11:05 AM EDT Body Mass Index 28.21 08/01/2024 11:05 AM EDT documented in this encounter Progress Notes * Jess Persaud MD - 08/01/2024 11:00 AM EDT Images from the original note were not included. Subjective Raiza Cote is a 29 year old female that presents for Emergency Department Follow-Up ([facility] for [facility] and leakage. ) and Hospital Follow-Up History of Present Illness Patient is here for hospital discharge follow up. Admitted on 07/22/24 and discharged on 07/24/24. Presented to the ED with intermittent palpitations and syncopal episodes during . She had stopped her beta carol 8 months ago due to . Work up unremarkable. Neuro did not feel it wasr/t seizure but notes no driving and tilt table test after . Cardio also noted restarting the beta carol after and induction of labour. Once stabilized d/c home with close followup. All systems reviewed and pertinent positives noted above Medications added/ changed: none Medications stopped: none Current Medication list: All labs and imaging that occurred during this hospital admission were discussed during this officevisit including those noted below EKG and zio from june 2024 Recent Results (from the past 4 weeks) BASIC METABOLIC PANEL Collection Time: 07/15/24 10:59 AM Result Value Ref Range BUN 4 (L) 6 - 20 mg/dL CREATININE 0.5 0.5 - 1.0 mg/dL EGFR >90 >=60 mL/min SODIUM 137 135 - 146 mmol/L POTASSIUM 3.8 3.5 - 5.1 mmol/L CHLORIDE 103 98 - 107 mmol/L CO2 22 22 - 32 mmol/L ANION GAP 12 7 - 15 mmol/L GLUCOSE 111 70 - 120 mg/dL CALCIUM 8.9 8.4 - 10.2 mg/dL MAGNESIUM Collection Time: 07/15/24 10:59 AM Result Value Ref Range Magnesium 1.7 1.5 - 2.6 mg/dL GROUP B STREP CULTURE/PCR Collection Time: 07/15/24 1:09 PM Specimen: Vaginal Rectal; Swab Result Value Ref Range Group B Strep PCR Result Negative Negative GBS GBSCt 0.0 GBS SPCCt 31.5 ] Objective BP 103/74 | Pulse 85 | Temp 98 °F (36.7 °C) (Tympanic) | Resp 16 | Ht 5' 2.99" (1.6 m) | Wt 159 lb 3.2 oz (72.2 kg) | LMP 10/27/2023 (Approximate) | SpO2 97% | BMI 28.21 kg/m² | BSA 1.79 m² BP Readings from Last 3 Encounters: 08/01/24 103/74 07/31/24 128/84 07/26/24 110/60 Physical Exam BP 103/74 | Pulse 85 | Temp 98 °F (36.7 °C) (Tympanic) | Resp 16 | Ht 5' 2.99" (1.6 m) | Wt 159 lb 3.2 oz (72.2 kg) | LMP 10/27/2023 (Approximate) | SpO2 97% | BMI 28.21 kg/m² | BSA 1.79 m² General: alert and healthy Ears: External ears normal, Canals clear, R TM normal, L TM ongoing erythema and drainage Heart: regular rate & rhythm and no murmur Lungs: chest symmetric with normal AP diameter, no chest deformities noted, normal respiratory rateand rhythm, lungs clear to auscultation Results Assessment and Plan Assessment & Plan Hospital discharge follow-up - DISCH MED RECON CUR MED LIS Moderate recurrent major depression (HCC) Continue zoloft at current dose, adjust accordingly Syncope and collapse - TILT TABLE EVALUATION Otitis externa, fungal - Clotrimazole 1 % External Solution (Mycelex); Apply topically to affected area 3 times a day. Apply 3 drops to the left ear three times daily for 21 days History of drug abuse (HCC) Doing well in sobriety Wrap-Up I spent a total of 40-54 minutes (exact time 43 mins) on the date of service in preparation, delivery, and documentation of the care provided to Raiza Cote excluding any time spent in the performance of separately billed services. Text in this note was generated using an ambient documentation service. I discussed the use of a device to record and summarize our discussion today. All persons present during the encounter consented to its use. documented in this encounter Nursing Notes * Frances Luna CCMA - 08/01/2024 11:04 AM EDT Chief Complaint Patient presents with Emergency Department Follow-Up PT was in [facility] ER, initially went in for contractions and leakage. documented in this encounter Plan of Treatment Upcoming Encounters Date Type Department Care Team (Late st Contact Info) Description 08/07/2024 10:30 AM EDT Office Visit Gynecology/Obstetrics [facility] [address] [place] [address] Neeru Haynes CRNP [address] [place] [address] 08/12/2024 8:45 AM EDT Office Visit Gynecology/Obstetrics [facility] [address] [place] [address] Dawn Blanchard CRNP [address] [place] [address] 08/12/2024 10:30 AM EDT Office Visit [facility] [address] [place] [address] Terra Rosales, DO [address] [facility] [place] [address] 08/28/2024 3:00 PM EDT Office Visit Gynecology/Obstetrics [facility] [address] [place] [address] Rolando Baez MD [address] [place] [address] 12/16/2024 7:40 AM EDT Office Visit [facility] [address] [place] [address] Jess Persaud MD [address] [place] [address] Scheduled Orders Name Type Priority Associated Diagnoses Orde r Schedule TILT TABLE EVALUATION Procedures Routine Syncope and collapse Ordered: 08/01/2024 Health Maintenance Due Date Last Done Comments Pneumococcal Vaccine: Pediatrics (0 to 5 Years) and At-Risk Patients (6 to 18 Years and 19+ Years) (1 of 2 - PCV) 2014 COVID-19 Vaccine ( season) 2023 04/22/2020, 04/02/2020 Depression Monitoring 12/14/2024 [...] Author Reminders Care Plan OB Reminders No Mychart, Provider documented as of this encounter Medical Devices Implanted Type Area Hot Head Machine Operator Device Identifier Shelf Expiration Date Model / Serial / Lot Arciniega Vent Tube #[id number] - [id number] Implanted:Qty: 1 on 08/09/2023 by Terra Rosales DO at [place] [facility] [place] Left: Ear [employer] 12/25/2032 [id number] / / [id number] Arciniega Vent Tube #[id number] - [id number] Implanted:Qty: 1 on 08/09/2023 by Terra Rosales DO at [place] [facility] [place] Right: Ear [employer] 12/25/2032 [id number] / / [id number] documented as of this encounter Visit Diagnoses Diagnosis PSC (primary sclerosing cholangitis)- Primary Cholangitis Depression with anxiety Dysthymic disorder 9 weeks gestation of state, incidental PSC (primary sclerosing cholangitis)- Primary Cholangitis Hospital discharge follow-up- Primary Other follow-up examination Moderate recurrent major depression (HCC) Major depressive disorder, recurrent episode, moderate Syncope and collapse Otitis externa, fungal Other and unspecified mycoses History of drug abuse (HCC) Other, mixed, or unspecified nondependent drug abuse, in remission documented in this encounter Additional Health Concerns Active Problems [...] Power of Attor casandra? No Care Teams Lamp Cleaner Relationship Specialty Start Date End Date Jess Persaud MD [address] [place] [address] PCP - General Family Medicine 11/04/22 documented as of this encounter
--- OUTSIDE RECORDS SUMMARY | 2024-08-06 16:54 | External Medical Summary | Summary of Care ---
Author Name Unknown Organization [facility] Address [address] [place] [address] Phone [phone] Care Team Providers Care Insulation Batting Machine Operator Name Role Phone Jess Persaud MD Primary Care Provider Encounter Details Date Type Department Care Team (Late st Contact Info) Description 07/26/2024 Telephone Gynecology/Obstetrics [facility] [address] [place] [address] Dawn Blanchard CRNP [address] [facility] [address] Allergies Active Allergy Reactions Criticality Noted Date [...] as of this encounter (statuses as of 07/26/2024) Medications One Daily 27-0.8 MG Oral Tablet [...] morning. Active Clotrimazole 1 % External Solution (Mycelex)Indicat ions:Otitis externa, fungal Apply topically to affected area 3 times a day for 21 days. 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 -We recommend liver function testing each trimester but will deer to the guidance of her [employer] barista on frequency of testing -Recommend monitoring bile [...] Recommend patient continue to follow-up with her logistics planning manager/[employer] barista. 4. Recommend annual thyroid function test (with [...] as of this encounter (statuses as of 07/26/2024) Resolved Problems Problem Noted Date Diagnosed Date [...] uncomplicated 07/04/2016 06/07/2019 Overview (07/04/2016): Hospitalized at [facility] June 2016. Abnormal findings on imaging of [...] as of this encounter (statuses as of 07/26/2024) Immunizations Name Administration Dates Next Due COVID-19 mRNA, LNP-s, No Pre serve, 2-Dose Series (GlycoMimetics) 04/22/2020,04/02/2020 DTaP Dipth/Tet/Acell Pertussis (Infanrix), Peds 03/15/2000,09/12/1996,1995,1995,1995 HIB PRP-T, 4 Dose, PF, IM (H iberix, ActHib) 06/18/1996,1995,1995,1995 HPV Vaccine, 4-Valent 08/02/2007,04/10/2007,01/01 Hepatitis B, 0-19 yrs 1995,1995,03/03 MMR - Measles/Mumps/Rubella Vaccine 03/15/2000,0 06/18/1996 OPV - Polio Virus Vaccine (Oral) 997,1995,1995,1995 Seasonal Influenza Virus Vac cine, Unspecified Formulation [...] money to get more. Never true 03/18/2024 [place] Depression Scale Answer Date Recorded [place] Depression Scale Total 17 07/15/2024 The thought [...] No 03/18/2024 Does the household have a [facility] source of income? 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 I called pt and scheduled her. Pt said she still wants to keep appt for 07/31 with rich * Telephone Encounter - Lino Brady OSA - 07/26/2024 9:19 AM EDT Per check out notes pt is to return In 1 week with MD to discuss tubal. No MD available prior to delivery. Please advise documented in this encounter Plan of Treatment Upcoming Encounters Date Type Department Care Team (Late st Contact Info) Description 07/30/2024 12:00 PM EDT Office Visit [facility] [address] [place] [address] Jess Persaud MD [address] [place] [address] 07/31/2024 8:00 AM EDT Office Visit Gynecology/Obstetrics [facility] [address] [place] [address] Rich Haynes CRNP [address] [place] [address] 08/02/2024 1:15 PM EDT Office Visit Gynecology/Obstetrics [facility] [address] [place] [address] Rolando Baez MD [address] [place] [address] 08/07/2024 10:30 AM EDT Office Visit Gynecology/Obstetrics [facility] [address] [place] [address] Rich Haynes CRNP [address] [place] [address] 08/12/2024 8:45 AM EDT Office Visit Gynecology/Obstetrics [facility] [address] [place] [address] BackerDawn CRNP [address] [place] [address] 08/12/2024 10:30 AM EDT Office Visit OtolaryngologyEdward Avjosh [address] [place] [address] Terra Rosales, DO [address] [facility] [place] [address] 12/16/2024 7:40 AM EDT Office Visit Family Practice, [place] [address] [place] [phone] Jess Persaud MD [address] [place] [address] Health Maintenance Due Date Last Done Comments [...] this encounter Medical Devices Implanted Type Area Inbound Ingredient Logistics Specialist Device Identifier Shelf Expiration Date Model / Serial / Lot Arciniega Vent Tube #[id number] - [id number] Implanted:Qty: 1 on 08/09/2023 by Terra Rosales DO [place] [facility] [place]: Ear [employer] 12/25/2032 [id number] / / [id number] Arciniega Vent Tube #[id number] - [id number] Implanted:Qty: 1 on 08/09/2023 by Terra Rosales DO [place] [facility] [place] Right: Ear [employer] 12/25/2032 [id number] / / [id number] documented as of this encounter Additional Health [...] Power of Attor casandra? No Care Teams Insulation Batting Machine Operator Relationship Specialty Start Date End Date Jess Persaud MD [address] [place] [address] PCP - General Family Medicine 11/04/22 documented as of this encounter
--- OUTSIDE RECORDS SUMMARY | 2024-08-06 16:54 | External Medical Summary | Summary of Care ---
Author Name Unknown Organization [facility] Address [address] [place] [address] Phone [phone] Care Team Providers Care Pocket Cutter Name Role Phone Jess Persaud MD Primary Care Provider [phone] Encounter Details Date Type Department Care Team (Late st Contact Info) Description 07/26/2024 Telephone Gynecology/Obstetrics [facility] [address] [place] [address] Dawn Blanchard CRNP [address] [facility] [place] [address] Allergies Active Allergy Reactions Criticality Noted Date [...] -We recommend a follow up with the chronic condition nurse for updated guidance specific to and for completion of new liver labs -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 -We recommend liver function testing each trimester but will deer to the guidance of her chronic condition nurse on frequency of testing -Recommend monitoring bile [...] Recommend patient continue to follow-up with her package wrapper/chronic condition nurse. 4. Recommend annual thyroid function test (with [...] uncomplicated 07/04/2016 06/07/2019 Overview (07/04/2016): Hospitalized at [facility] June 2016. Abnormal findings on imaging of [...] mRNA, LNP-s, No Pre serve, 2-Dose Series ([employer]) 04/22/2020,04/02/2020 DTaP Dipth/Tet/Acell Pertussis (Infan[employer]), Peds 03/15/2000,09/12/1996,1995,1995,1995 [...] money to get more. Never true 03/18/2024 [place] Depression Scale Answer Date Recorded [place] Depression Scale Total 17 07/15/2024 The thought [...] No 03/18/2024 Does the household have a [facility] source of income? 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 Not on file Not [...] Description 07/30/2024 12:00 PM EDT Office Visit [facility] [address] [place] [address] Jess Persaud MD [address] [place] [address] 07/31/2024 8:00 AM EDT Office Visit Gynecology/Obstetrics [facility] [address] [place] [address] Rich Haynes CRNP [address] [place] [address] 08/02/2024 1:15 PM EDT Office Visit Gynecology/Obstetrics [facility] [address] [place] [address] Rolando Baez MD [address] [place] [address] 08/07/2024 10:30 AM EDT Office Visit Gynecology/Obstetrics [facility] [address] [place] [address] Rich Haynes CRNP [address] [place] [address] 08/12/2024 8:45 AM EDT Office Visit Gynecology/Obstetrics [facility] [address] [place] [address] BackerDawn CRNP [address] [place] [address] 08/12/2024 10:30 AM EDT Office Visit OtolaryngologyEdward [facility] [address] [place] [address] Terra Rosales, DO [address] [facility] [place] [address] 12/16/2024 7:40 AM EDT Office Visit Family Practice, [place] [address] [place] [phone] Jess Persaud MD [address] [place] [address] Health Maintenance Due Date Last Done Comments [...] this encounter Medical Devices Implanted Type Area Assistant Professor Of Biology Device Identifier Shelf Expiration Date Model / Serial / Lot Arciniega Vent Tube #[id number] - [id number] Implanted:Qty: 1 on 08/09/2023 by Terra Rosales DO at [place] [facility] [place] Left: Ear [employer] 12/25/2032 [id number] / / [id number] Arciniega Vent Tube #[id number] - [id number] Implanted:Qty: 1 on 08/09/2023 by Terra Rosales DO at OR [facility] [place] Right: Ear [employer] 12/25/2032 [id number] / / [id number] documented as of this encounter Additional Health [...] Power of Attor casandra? No Care Teams Pocket Cutter Relationship Specialty Start Date End Date Jess Persaud MD [address] [place] [address] PCP - General Family Medicine 11/04/22 documented as of this encounter
--- OUTSIDE RECORDS SUMMARY | 2024-08-06 16:54 | External Medical Summary | Summary of Care ---
Author Name Unknown Organization [facility] Address [address] [place] [address] Phone [phone] Care Team Providers Care Environment Artist Name Role Phone Jess Persaud MD Primary Care Provider [phone] Reason for Visit * Reason Comments Return Visit Encounter Details Date Type Department Care Team (Late st Contact Info) Description 07/26/2024 8:45 AM EDT [facility] [address] [place] [address] Dawn Blanchard CRNP [address] [place] [address] Supervision of high-risk , unspecified trimester*; Depression with anxiety; Antepartum anemia complicating ; Abnormal glucose tolerance in mother complicating ; PSC (primary sclerosing cholangitis) Allergies Active Allergy Reactions Criticality Noted Date [...] morning. 30 Tablet 5 04/17/19 25 Active Docusate Sodium 100 MG Oral Capsule (Colace)Indicati ons:Antepartum anemia complicating Take 1 capsule by mouth twice a day as needed. 60 Capsule 5 04/17/19 25 Active Additional Information Patient not taking.Reported on 07/15/2024 Breast PumpIndications: Breast feeding status of mother Use as directed. 1 Each 05/13/19 25 Active Additional Information Patient not taking.Reported on 07/15/2024 Acetaminophen 325 MG Oral Tablet (Tylenol) Take 2 Tablets by mouth every 6 hours as needed for Pain, Mild. 30 Tablet 1 06/14/19 25 Active Potassium Chloride ER 10 MEQ Oral [...] 21 days 15 mL 2 07/20/19 25 025 Active Fluconazole 50 MG Oral Tablet (Diflucan) Take 3 Tablets by mouth once for 1 dose. Do not start before June 15, 2024. 3 Tablet 06/16/19 25 025 Discontin ued(Medic ation List Clean Up) Cephalexin 500 MG Oral Capsule (Keflex)Indicati ons:Acute serous otitis media of left ear, recurrence not specified Take 1 Capsule by mouth in the morning and 1 Capsule at noon and 1 Capsule before bedtime. Do all this for 7 days. 21 Capsule 07/14/19 25 025 Discontin ued(Medic ation List Clean Up) Cefdinir 300 MG Oral Capsule (Omnicef) Take 1 Capsule by mouth in the morning and 1 Capsule before bedtime. Do all this for 10 days. 20 Capsule 07/16/19 25 025 Discontin ued(Medic ation List Clean Up) Ofloxacin 0.3 % Otic Solution (Floxin) Administer 5 Drops into the left ear in the morning and 5 Drops before bedtime. Do all this for 7 days. 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 -We recommend liver function testing each trimester but will deer to the guidance of her nurse substance abuse on frequency of testing -Recommend monitoring bile [...] Recommend patient continue to follow-up with her sales marketing coordinator/nurse substance abuse. 4. Recommend annual thyroid function test (with [...] uncomplicated 07/04/2016 06/07/2019 Overview (07/04/2016): Hospitalized at [facility] June 2016. Abnormal findings on imaging [...] mRNA, LNP-s, No Pre serve, 2-Dose Series ([email or web address]) 04/22/2020,04/02/2020 HPV Vaccine, 4-Valent 08/02/2007,04/10/2007,01/01 Hepatitis B, [...] money to get more. Never true 03/18/2024 [place] Depression Scale Answer Date Recorded [place] Depression Scale Total 17 07/15/2024 The thought [...] 03/18/2024 Does the household have a re gular source of income? 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 Met with cardio, neuro. Consideration for IOL due to such episodes and in order for her to resume metoprolol after delivery. Pt desires this, scheduled with nursing. Instructions provided. Earliest availability is 08/09 - will schedule and call L&D next week for earlier date. No regular ctx or LOF, bleeding. Good movement. Advised to call with decreased FM, regular ctx, concerns of LOF, or bleeding. Desires tubal , done with childbearing. Aware this will be done after period, can schedule appt w/ to discuss and schedule. 1 week return NGOC Kay * Coral Hilton LPN - 07/26/2024 8:48 AM EDT 37w5d Admitted to [facility] 07/22-07/23 overnight observation for syncope episodes has had these episodes for the past 4 years, fluid on lungs. Has neurology and cardiology apts Wanting to discuss induction date. documented in this encounter Plan of Treatment Upcoming Encounters Date Type Department Care Team (Late st Contact Info) Description 07/30/2024 12:00 PM EDT Office Visit [facility] [address] [place] [address] Jess Persaud MD [address] [place] [phone] 07/31/2024 8:00 AM EDT Office Visit Gynecology/Obstetrics [facility] [address] [place] [address] Neeru Haynes CRNP [address] [place] [address] 08/02/2024 1:15 PM EDT Office Visit Gynecology/Obstetrics [facility] [address] [place] [address] Rolando Baez MD [address] [place] [address] 08/07/2024 10:30 AM EDT Office Visit Gynecology/Obstetrics [facility] [address] [place] [address] Neeru Haynes CRNP [address] [place] [address] 08/12/2024 8:45 AM EDT Office Visit Gynecology/Obstetrics [facility] [address] [place] [address] Dawn Blanchard CRNP [address] [place] [address] 08/12/2024 10:30 AM EDT Office Visit OtolaryngologyEdward [address] [place] [address] Terra Rosales, DO [address] [facility] [facility] [address] 12/16/2024 7:40 AM EDT Office Visit Family [facility] [address] [place] [address] Jess Persaud MD [address] [place] [address] Health Maintenance Due Date [...] this encounter Medical Devices Implanted Type Area Molder Fitting Device Identifier Shelf Expiration Date Model / Serial / Lot Arciniega Vent Tube #[id number] - [id number] Implanted:Qty: 1 on 08/09/2023 by Terra Rosales DO at [place] [facility] [place]: Ear [employer] 12/25/2032 [id number] / / [id number] Arciniega Vent Tube #[id number] - [id number] Implanted:Qty: 1 on 08/09/2023 by Terra Rosales DO at [place] [facility] [place] Right: Ear [employer] 12/25/2032 [id number] / / [id number] documented as of this encounter Visit Diagnoses Diagnosis PSC (primary sclerosing cholangitis)- Primary Cholangitis Depression with anxiety Dysthymic disorder 9 weeks gestation of state, incidental PSC (primary sclerosing cholangitis)- Primary Cholangitis Supervision of high-risk , unspecified trimester- Primary Depression with anxiety Dysthymic disorder Antepartum anemia complicating Anemia, antepartum Abnormal glucose tolerance in mother complicating Abnormal maternal glucose tolerance, complicating , childbirth, or the puerperium, unspecified as to episode of care PSC (primary sclerosing cholangitis) Cholangitis documented in this encounter Additional Health Concerns [...] Power of Attor casandra? No Care Teams Environment Artist Relationship Specialty Start Date End Date Jess Persaud MD [address] [place] [address] PCP - General Family Medicine 11/04/22 documented as of this encounter
--- OUTSIDE RECORDS SUMMARY | 2024-08-06 16:54 | External Medical Summary | Summary of Care ---
Author Name Unknown Organization [facility] Address [address] [place] [address] Phone [phone] Care Team Providers Care Director Cpg Name Role Phone Jess Persaud MD Primary Care Provider Reason for Visit * Reason Comments Return Visit Encounter Details Date Type Department Care Team (Late st Contact Info) Description 07/31/2024 8:00 AM EDT Office Visit Gynecology/Obstetric s [facility] [address] [place] [address] Neeru Haynes CRNP [address] [place] [address] Supervision of high-risk , unspecified trimester*; Depression with anxiety; PSC (primary sclerosing cholangitis); Antepartum anemia complicating ; Abnormal glucose tolerance in mother complicating Allergies Active Allergy Reactions Criticality Noted Date [...] as of this encounter (statuses as of 07/31/2024) Medications One Daily 27-0.8 MG Oral Tablet [...] Additional Information Patient not taking.Reported on 07/31/2024 Breast PumpIndications: Breast feeding status of mother [...] as of this encounter (statuses as of 07/31/2024) Active Problems Problem Noted Date Diagnosed Date fall07/01/2024 Abdominal pain during , antepartum /0 07/2024 Abnormal glucose tolerance in mother complicatin [...] -We recommend a follow up with the senior instructor for updated guidance specific to and for completion of new liver labs -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 -We recommend liver function testing each trimester but will deer to the guidance of her senior instructor on frequency of testing -Recommend monitoring bile [...] Recommend patient continue to follow-up with her liaison engineer/senior instructor. 4. Recommend annual thyroid function test (with [...] as of this encounter (statuses as of 07/31/2024) Resolved Problems Problem Noted Date Diagnosed Date [...] uncomplicated 07/04/2016 06/07/2019 Overview (07/04/2016): Hospitalized at [facility] June 2016. Abnormal findings on [...] as of this encounter (statuses as of 07/31/2024) Immunizations Name Administration Dates Next Due COVID-19 mRNA, LNP-s, No Pre serve, 2-Dose Series ([employer]) 04/22/2020,04/02/2020 HPV Vaccine, 4-Valent 08/02/2007,04/10/2007,01/01 Hepatitis B, [...] money to get more. Never true 03/18/2024 [place] Depression Scale Answer Date Recorded [place] Depression Scale Total 17 07/15/2024 The thought [...] No 03/18/2024 Does the household have a [facility] source of income? 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 This occurred at the end of herlast as well. Having some cramping, feels this is GI in nature, not related to . IOL d/t recurrent syncopal episodes, changed to 5/6. Asking for cervical check. Program Manager Transportation Documentation Provider requested television station manager. Name of television station manager: NGOC Burrows * Emily Locke CMA - 07/31/2024 8:00 AM EDT 38w3d Having period like cramps. Cannot keep anything down for last 48 hours. Has been having frequent bowel movements lately. Requesting cervical check documented in this encounter Plan of Treatment Upcoming Encounters Date Type Department Care Team (Late st Contact Info) Description 08/01/2024 11:00 AM EDT Office Visit [facility] [address] [place] [address] Jess Persaud MD [address] [place] [address] 08/02/2024 2:45 PM EDT Office Visit Gynecology/Obstetrics [facility] [address] [place] [address] Rolando Baez MD [address] [place] [address] 08/07/2024 10:30 AM EDT Office [facility] [address] [place] [address] Neeru Haynes CRNP [address] [place] [address] 08/12/2024 8:45 AM EDT Office Visit Gynecology/Obstetrics [facility] [address] [place] [address] Dawn Blanchard CRNP [address] [place] [address] 08/12/2024 10:30 AM EDT Office Visit Otolaryngology, [facility] [address] [address] Terra Rosales, DO [address] [facility] [address] 12/16/2024 7:40 AM EDT Office Visit [facility] [address] [place] [address] Jess Persaud MD [address] [place] [address] Health Maintenance Due Date [...] this encounter Medical Devices Implanted Type Area Hand Bobbin Cleaner Device Identifier Shelf Expiration Date Model / Serial / Lot Ar[employer] Vent Tube #[id number] - [id number] Implanted:Qty: 1 on 08/09/2023 by Terra Rosales, DO [place] [facility]: Ear [employer] 12/25/2032 [id number] / / [id number] Arciniega Vent Tube #[id number] - [id number] Implanted:Qty: 1 on 08/09/2023 by Terra Rosales, DO at [place] [facility] Right: Ear [employer] 12/25/2032 [id number] / / [id number] documented as of this encounter Visit Diagnoses Diagnosis PSC (primary sclerosing cholangitis)- Primary Cholangitis Depression with anxiety Dysthymic disorder 9 weeks gestation of state, incidental PSC (primary sclerosing cholangitis)- Primary Cholangitis Supervision of high-risk , unspecified trimester- Primary Depression with anxiety Dysthymic disorder PSC (primary sclerosing cholangitis) Cholangitis Antepartum anemia complicating Anemia, antepartum Abnormal glucose tolerance in mother complicating Abnormal maternal glucose tolerance, complicating , childbirth, or the puerperium, unspecified as to episode of care documented in this encounter Additional Health Concerns [...] Power of Attor casandra? No Care Teams Director Cpg Relationship Specialty Start Date End Date Jess Persaud MD [address] [place] [phone] PCP - General Family Medicine 11/04/22 documented as of this encounter
[2024-08-06] MEDS ORDERED: LIDOCAINE 2%/EPINEPHRINE 1:200,000 20 ML PF ONE (17:49)
[2024-08-06] MEDS: ePHEDrine sulfate 50 MG/ML AMP ONE (18:09)
[2024-08-06] MEDS: miSOPROStoL 200 MCG TAB PR ONE (20:05)
[2024-08-06] MEDS ORDERED: HYDROCORTISONE ACETATE 25 MG SUPP PR PRN (20:25)
--- NOTE | 2024-08-06 20:25 | Delivery Summary ---
Vaginal Delivery Summary Date of Service August 06, 2024 Vaginal Delivery Summary DELIVERY NOTE Patient delivered a live infant male in left occiput anterior presentation there was tight nuchal cord which was cut because it could not be easily reduced. Infant was delivered and placed on mother's abdomen. Cord blood is obtained Meconium was present after AROM Placenta is spontaneously delivered. Placenta appears grossly normal and has 3 vessel cord Inspection of the perineum showed a first-degree midline laceration. Laceration is repaired in layers with 3-0 Vicryl in layers Rectal exam post repair showed good sphincter tone no sutures palpated in the rectum. Quantitative blood loss is 200 cc Infants weight and scores are in the pediatric record Mother and baby are stable in in the recovery
--- NOTE | 2024-08-06 20:40 | Anesthesia Procedure Note ---
Date of Service August 06, 2024 Anesthesia Post Epidural Note Vital Signs Vital Signs: Temp Pulse Resp BP Pulse Ox 36.8 C 80 16 134/83 99 08/06/24 19:00 08/06/24 20:21 08/06/24 19:30 08/06/24 20:21 08/06/24 20:11 Pain Intensity Abdomen: Pain Intensity: 0 Notes Mental Status: alert / awake / arousable and participated in evaluation Patient Amnestic to Procedure: No Nausea / Vomiting: adequately controlled Pain: adequately controlled Airway Patency, RR, SpO2: stable & adequate BP & HR: stable & adequate Hydration State: stable & adequate Neuraxial Anesthesia: was administered and sensory block is resolving Anesthetic Complications: no major complications apparent and Pt Satisfied with anesthetic care Epidural: Removed without complications and With tip intact
[2024-08-06] MEDS: IBUPROFEN 600 MG TAB PO PRN (23:32)
[2024-08-06] MEDS: BENZOCAINE 20% SPRY 85 APPLN/85 GM CAN EXT PRN (23:32)
[2024-08-07 06:21] LABS: Hematocrit (blood only) 28.8 % (37.0-47.0); Hemoglobin 10.1 g/dl (12.0-16.0); Mean Corpuscular Hemoglobin 30.5 pg (25.0-34.0); Mean Corpuscular Hgb Conc 35.1 g/dL (32.0-36.0); Mean Platelet Volume 10.9 fL (9.4-12.4); Platelet Count 133 K/uL (130-400); RDW Coefficient of Variation 12.8 % (11.5-14.5); RDW Standard Deviation 40.2 fL (36.4-46.3); Red Blood Count 3.31 M/uL (4.20-5.40); White Blood Count 10.06 K/ul (4.8-10.8)
[2024-08-07] MEDS: ACETAMINOPHEN 325 MG TAB PO PRN (07:25)
--- NOTE | 2024-08-07 07:49 | Obstetrical Progress Note ---
Date of Service August 07, 2024 Assessment & Plan Admission and Anticipated Discharge Date Admission Date: August 06, 2024 Subjective Patient is seen and examined. She feels well, no complaints. Ambulating without dizziness Voiding without difficulty Tolerating regular diet with out N&V Bleeding is minimal No fever/ chills/ CP/ SOB/ N&V/ Leg pain Breast feeding without problems Vital Signs Temp Pulse Pulse Resp BP BP Pulse Ox 08/07/24 03:30 36.6 C 67 16 105/74 99 08/06/24 23:00 37.4 C 89 16 116/80 99 08/06/24 22:38 72 138/63 08/06/24 22:05 81 125/75 08/06/24 21:50 76 130/78 08/06/24 21:36 96 H 136/77 08/06/24 21:21 78 138/75 08/06/24 21:06 71 139/90 08/06/24 20:57 93 H 144/85 H 08/06/24 20:21 80 134/83 08/06/24 20:11 73 99 08/06/24 20:10 16 08/06/24 20:06 90 125/73 99 08/06/24 20:01 70 97 08/06/24 19:56 76 99 08/06/24 19:51 100 08/06/24 19:51 78 08/06/24 19:51 74 88 L O2 Del Method 08/07/24 03:30 Room Air 08/06/24 23:00 Room Air 08/06/24 22:38 08/06/24 22:05 08/06/24 21:50 08/06/24 21:36 08/06/24 21:21 08/06/24 21:06 08/06/24 20:57 08/06/24 20:21 08/06/24 20:11 08/06/24 20:10 08/06/24 20:06 08/06/24 20:01 08/06/24 19:56 08/06/24 19:51 08/06/24 19:51 08/06/24 19:51 Lab Results 08/06/24 08/07/24 Range/Units 12:15 05:44 WBC 6.48 10.06 (4.8-10.8) K/ul RBC 3.82 L 3.31 L (4.20-5.40) M/uL Hgb 11.7 L 10.1 L (12.0-16.0) g/dl Hct 33.2 L 28.8 L (37.0-47.0) % MCV 86.9 87.0 (80.0-100.0) fL MCH 30.6 30.5 (25.0-34.0) pg MCHC 35.2 35.1 (32.0-36.0) g/dL RDW Std Deviation 39.8 40.2 (36.4-46.3) fL RDW Coeff of Yue 12.8 12.8 (11.5-14.5) % Plt Count 142 133 (130-400) K/uL MPV 10.9 10.9 (9.4-12.4) fL Treponema pallidum Ab Negative (Negative) PE: General: Alert, orientedx3, NAD Abd: soft, NT, fundus firm, below Umbilicus Perineum intact, Lochia rubra minimal Ext; NT, no edema AP: 29 yo s/p , ppd# 1 VSS Afebrile doing well Continue routine care All questions were answered Desires D/C home tonight Results & Data Vital Signs (Past 12 Hours) Vital Signs Temp Pulse Pulse Resp BP BP Pulse Ox 08/07/24 03:30 36.6 C 67 16 105/74 99 08/06/24 23:00 37.4 C 89 16 116/80 99 08/06/24 22:38 72 138/63 08/06/24 22:05 81 125/75 08/06/24 21:50 76 130/78 08/06/24 21:36 96 H 136/77 08/06/24 21:21 78 138/75 08/06/24 21:06 71 139/90 08/06/24 20:57 93 H 144/85 H 08/06/24 20:21 80 134/83 08/06/24 20:11 73 99 08/06/24 20:10 16 08/06/24 20:06 90 125/73 99 08/06/24 20:01 70 97 08/06/24 19:56 76 99 08/06/24 19:51 100 08/06/24 19:51 78 08/06/24 19:51 74 88 L O2 Del Method 08/07/24 03:30 Room Air 08/06/24 23:00 Room Air 08/06/24 22:38 08/06/24 22:05 08/06/24 21:50 08/06/24 21:36 08/06/24 21:21 08/06/24 21:06 08/06/24 20:57 08/06/24 20:21 08/06/24 20:11 08/06/24 20:10 08/06/24 20:06 08/06/24 20:01 08/06/24 19:56 08/06/24 19:51 08/06/24 19:51 08/06/24 19:51
[2024-08-07] MEDS: DOCUSATE SODIUM 100 MG CAP PO SCH (08:36)
[2024-08-07] MEDS: PRENATAL VITAMIN 1 TAB PO SCH (08:36)
[2024-08-07] MEDS: fentANYL 2 MCG/ML BUPIVacaine 0.125%-NSS 100ML BAG ONE (08:37)
[2024-08-07] MEDS: LIDOCAINE 2%/EPINEPHRINE 1:200,000 20 ML PF EPI STA (08:37)
[2024-08-07] MEDS: SODIUM CHLORIDE 0.9% PF INJ 10 ML VIAL EPI STA (08:37)
[2024-08-07] MEDS: DIPHTHER/TETAN/PERTUS Vaccine (Tdap, Adol/Adult) 0.5mL IM ONE (08:37)
[2024-08-07] MEDS: BUPIVACAINE 0.25% PF 30 ML VIAL EPI STA (08:37)
[2024-08-07] MEDS: miSOPROStoL 200 MCG TAB ONE (08:38)
[2024-08-07] MEDS: bisacodyL 5 MG TABEC PO SCH (19:38)
[2024-08-07 19:39] VITALS: BP 122/75; PULSE 72; RESP 18; TEMP 98.1; O2SAT 97
[2024-08-08] MEDS ORDERED: bisacodyL 10 MG SUPP PR PRN
--- NOTE | 2024-08-08 13:53 | Coding Query ---
CODING QUERY To promote full compliance with coding requirements relating to patient care, provider participation is requested in all cases of remote coders uncertainty. Please assist us with the question(s) below: Coding Question(s): Please document weeks of gestation Physician's Response(s): 39.2 weeks Thank you [place] [place] Principal Diagnosis: "that condition established after study, to be chiefly responsible for occasioning the admission of the patient to the hospital for care." Co-Existing Principal Diagnosis: "when two or more diagnoses equally meet the criteria for principal diagnosis as determined by the circumstances of admission, diagnostic work up, and/or therapy provided, and the Alphabetic Index, Tabular List, or another coding guideline does not provide sequencing direction, any one of the diagnoses may be sequenced first." "When the physician has documented what appears to be a current diagnosis in the body of the record, but has not included the diagnosis in the final diagnostic statement, the physician should be asked whether the diagnosis should be added." (Source [facility] 2 QTR90. p3-4) [facility]
== END 2024-08-07 21:20 | disposition home health service (06) | DRG 806 ==
LOC: 4S1 10:32 → 4E2 23:34